=== PATIENT | male | born 1950 | race Caucasian/White ===

== ENCOUNTER 2016-04-28 09:03 | Inpatient (IN) ==
[2016-04-28] MEDS ORDERED: Ondansetron 4 MG/2 ML VIAL IVP PRN (09:56)
[2016-04-28] MEDS ORDERED: Naloxone 0.4 MG/ML INJ IVP PRN (09:56)
[2016-04-28] MEDS ORDERED: 0.9 % Sodium Chloride 1,000 ML IVC SCH (10:00)
[2016-04-28] MEDS ORDERED: MetroNIDAZOLE 500 MG/100 ML 500 MG/100 ML BAG IVPB SCH (10:08)
[2016-04-28] MEDS ORDERED: D10% in Water 500 ML IV PRN (11:55)
[2016-04-28] MEDS ORDERED: Lidocaine -MPF 1% 5 ML AMPUL INFILT ONE (12:04)
[2016-04-28] MEDS: Pantoprazole 40 MG VIAL IVP SCH (12:12)
[2016-04-28] MEDS: 0.9 % Sodium Chloride 1,000 ML IVC SCH (12:13)
[2016-04-28 12:20] LABS: Basophils % 0.1 %; Eosinophils # 0.1 K/mcL (0.0-0.6); Eosinophils % 0.4 %; Hematocrit 34.5 % (37.5-50.1); Hemoglobin 11.5 g/dL (12.9-16.9); Immature Granulocytes % 1.2 % (0-4); Lymphocytes # 1.2 K/mcL (0.6-4.6); Lymphocytes % 7.9 %; Mean Corpuscular HGB Conc 33.3 g/dL (31.6-35.5); Mean Corpuscular Hemoglobin 28.3 pg (28.0-33.3); Mean Platelet Volume 9.1 fL (9.4-12.4); Monocytes # 1.6 K/mcL (0.0-1.3); Monocytes % 10.5 %; Neutrophils # 12.5 K/mcL (1.6-8.9); Platelet Count 282 K/mcL (140-400); Red Blood Count 4.06 M/mcL (4.19-5.50); Red Cell Distribution Width 12.7 % (11.5-14.5); Segmented Neutrophils % 79.9 %
[2016-04-28 12:39] LABS: BUN/Creatinine Ratio 39 (6-26); Blood Urea Nitrogen 38 mg/dL (8-26); Calcium 8.9 mg/dL (8.6-10.8); Carbon Dioxide 22 mEq/L (19-29); Chloride 99 mEq/L (98-109); Glucose 107 mg/dL (70-99); Magnesium 2.3 mg/dL (1.6-2.6); Osmolality,Calculated 282 (280-300); Phosphorous 3.8 mg/dL (2.3-4.7); Potassium 3.4 mEq/L (3.5-4.5); Sodium 131 mEq/L (136-145); Triglycerides 215 mg/dL (< 150); eGFR For African Americans > 60 (> 60); eGFR For Non-African Americans > 60 (> 60)
[2016-04-28] MEDS: *HR* HYDROmorphone (PF) 1 MG/ML SYRINGE IVP PRN ×3 (14:07→22:37)
[2016-04-28] MEDS ORDERED: Clinimix E 5%-15% SOLUTION 2,000 ML with MVI, adult with vitamin K 10 ML IV SCH (17:00)
[2016-04-28] MEDS: MetroNIDAZOLE 500 MG/100 ML 500 MG/100 ML BAG IVPB SCH (22:31)
[2016-04-29] MEDS: *HR* HYDROmorphone (PF) 1 MG/ML SYRINGE IVP PRN ×4 (04:32→22:30)
[2016-04-29] MEDS: MetroNIDAZOLE 500 MG/100 ML 500 MG/100 ML BAG IVPB SCH ×3 (04:34→22:26)
[2016-04-29 06:10] LABS: Magnesium 2.1 mg/dL (1.6-2.6); Phosphorous 3.3 mg/dL (2.3-4.7)
[2016-04-29] MEDS: Pantoprazole 40 MG VIAL IVP SCH (08:54)
[2016-04-29] MEDS: 0.9 % Sodium Chloride 1,000 ML IVC SCH (08:56)
--- NOTE | 2016-04-29 09:30 | General Surgery Progress Note ---
Date of Encounter: 04/29/16 Time of Encounter: 09:28 - Assessment and Plan (1) Intra-abdominal abscess Current Visit: Yes Status: Acute IR consult for drain placement in sub-hepatic abscess Continue NPO and bowel rest Continue IV antibiotics - Cipro and Flagyl Continue TPN with total fluid rate 100ml/hour (MIV + TPN) Supportive care/Pain control Repeat am labs No surgical intervention at this time- continue with conservative treatment (2) S/P right colectomy Current Visit: Yes Status: Acute POD # 16 right colon resection with Dr. Watkins CT shows no evidence of ongoing anastomotic leak Continue NPO and bowel rest Continue TPN therapy for nutrition May remove annemarie today (3) Leukocytosis Current Visit: Yes Status: Acute IV antibiotics- Cipro and Flagyl Repeat labs in the am Qualifiers: Leukocytosis type: unspecified Qualified Code(s): D72.829 - Elevated white blood cell count, unspecified (4) Hypertension Current Visit: Yes Status: Chronic Add Metoprolol IV every 6 hours for mildly elevated BP Continue to monitor and adjust treatment regimen as necessary Qualifiers: Hypertension type: essential hypertension Qualified Code(s): I10 - Essential (primary) hypertension (5) Hyperglycemia Current Visit: Yes Status: Acute Add low sliding scale insulin for mildly elevated blood glucose levels- Every 6 hour coverage Continue to monitor and adjust as necessary (6) DVT prophylaxis Current Visit: Yes Status: Acute Heparin 5,000 units SQ twice daily for DVT prophylaxis Subjective Patient reports: feels better, still having pain (Right sided abdominal pain), voiding w/o difficulty, flatus, shortness of breath (with exertion), fever ( Tmax 100.3) Objective Vital Signs - Last 8 Hours Temp Pulse Resp BP Pulse Ox 04/29/16 07:06 100.3 F H 77 18 147/76 93 L 04/29/16 04:00 100.1 F H 73 17 152/75 92 L Intake and Output 04/28/16 04/29/16 04/29/16 23:59 07:59 15:59 Intake Total 700 / 700 600 / 600 Output Total 395 / 395 290 / 290 Balance 305 / 305 310 / 310 Intake: IV Fluids 700 / 700 600 / 600 0.9 % Sodium Chloride 1, 400 / 400 600 / 600 000 ML @ 100 mls/hr IVC . Q10H [facility], [facility] Rx#:[id number] Cipro 400 MG/200 ML 400 200 / 200 mg In 200 ml @ 200 mls/hr IVPB Q12HR [facility] Rx#: [id number] Flagyl 500 MG/100 ML 500 100 / 100 mg In 100 ml @ 100 mls/hr IVPB Q8H [facility] Rx#: [id number] Oral 0 / 0 Output: Urine 350 / 350 250 / 250 Wound Drainage 45 / 45 40 / 40 Abdomen 45 / 45 40 / 40 Other: Blood Glucose* 118 130 - General physical appearance well developed, well nourished, no distress, moderate pain - Eyes normal ocular movement - ENT dry mucosa, atraumatic, normocephalic - Neck Neck exam: trachea midline - Respiratory normal respiratory effort, clear to auscultation, other (diminished bibasilar bases) - Cardiovascular Cardiovascular exam: Present: RRR - Abdomen Abdomen: Present: bowel sounds present, soft, tender Abdominal Tenderness: RUQ - Incision Incision: Present: clean and dry, intact - Neurologic CN 2-12 grossly intact - Musculoskeletal normal gait, normal posture - Psychiatric oriented to time, oriented to person, oriented to place, speech is normal, memory intact - Labs 04/28/16 12:12 04/28/16 12:12 Diabetes panel 04/28/16 Range/Units 12:12 Sodium 131 L (136-145) mEq/L Potassium 3.4 L (3.5-4.5) mEq/L Chloride 99 (98-109) mEq/L Carbon Dioxide 22 (19-29) mEq/L BUN 38 H (8-26) mg/dL Creatinine 0.98 (0.72-1.25) mg/dL Glucose 107 H (70-99) mg/dL Calcium 8.9 (8.6-10.8) mg/dL Triglycerides 215 H (< 150) mg/dL Calcium panel 04/28/16 04/29/16 Range/Units 12:12 05:45 Calcium 8.9 (8.6-10.8) mg/dL Phosphorus 3.8 3.3 (2.3-4.7) mg/dL Pituitary panel 04/28/16 Range/Units 12:12 Sodium 131 L (136-145) mEq/L Potassium 3.4 L (3.5-4.5) mEq/L Chloride 99 (98-109) mEq/L Carbon Dioxide 22 (19-29) mEq/L BUN 38 H (8-26) mg/dL Creatinine 0.98 (0.72-1.25) mg/dL Glucose 107 H (70-99) mg/dL Calcium 8.9 (8.6-10.8) mg/dL Adrenal panel 04/28/16 Range/Units 12:12 Sodium 131 L (136-145) mEq/L Potassium 3.4 L (3.5-4.5) mEq/L Chloride 99 (98-109) mEq/L Carbon Dioxide 22 (19-29) mEq/L BUN 38 H (8-26) mg/dL Creatinine 0.98 (0.72-1.25) mg/dL Glucose 107 H (70-99) mg/dL Calcium 8.9 (8.6-10.8) mg/dL - VTE Documentation of Mechanical Device: Intermittent pneumatic compression device Consult Discharge Plan - Plan [facility]errals: [facility] [Primary Care Provider[facility] -
[2016-04-29 09:35] LABS: BUN/Creatinine Ratio 33 (6-26); Calcium 8.2 mg/dL (8.6-10.8); Carbon Dioxide 23 mEq/L (19-29); Chloride 101 mEq/L (98-109); Glucose 125 mg/dL (70-99); Osmolality,Calculated 282 (280-300); Potassium 3.3 mEq/L (3.5-4.5); Sodium 133 mEq/L (136-145); eGFR For African Americans > 60 (> 60); eGFR For Non-African Americans > 60 (> 60)
[2016-04-29 09:36] LABS: Blood Urea Nitrogen 24 mg/dL (8-26)
[2016-04-29] MEDS ORDERED: Dextrose Gel 15 GM PO PRN ×2 (09:41)
[2016-04-29] MEDS ORDERED: D5% in Water 1,000 ML IV PRN (09:41)
[2016-04-29] MEDS ORDERED: *HR* Dextrose 50 % in Water (Syg) 50 ML SYRINGE IVP PRN (09:41)
[2016-04-29] MEDS ORDERED: *HR* FentaNYL (PF) 100 MCG/2 ML VIAL IV PRN (09:56)
[2016-04-29] MEDS ORDERED: *HR* Midazolam HCl 2 MG/2 ML VIAL IV PRN (09:56)
--- NOTE | 2016-04-29 10:21 | IR Procedure Note ---
Date of procedure: 04/29/16 Consent Obtained: Verbal consent, Written consent Timeout: Correct patient and procedure verified, Correct site verified, Time out performed, Skin prep completed Local anesthetic: Lidocaine 1% Indications: Subcapsular hepatic abscess Procedure Performed: Drain placement Site/Technique: CT guided placement right subcapsular drain Results/Findings: Large amount of purulent fluid Estimated blood loss (cc): 2 Complications: None; Tolerated procedure well Post Procedure Treatment Plan: Continue inpatient care
[2016-04-29] MEDS ORDERED: D10% in Water 500 ML IV PRN ×2 (10:44→11:24)
[2016-04-29 12:17] LABS: Basophils # 0.1 K/mcL (0.0-0.2); Basophils % 0.3 %; Eosinophils % 0.2 %; Hematocrit 36.8 % (37.5-50.1); Hemoglobin 12.2 g/dL (12.9-16.9); Lymphocytes # 1.5 K/mcL (0.6-4.6); Lymphocytes % 9.3 %; Mean Corpuscular HGB Conc 33.2 g/dL (31.6-35.5); Mean Corpuscular Volume 84.6 fL (83.0-100.0); Mean Platelet Volume 9.2 fL (9.4-12.4); Monocytes % 11.9 %; Neutrophils # 12.5 K/mcL (1.6-8.9); Platelet Count 320 K/mcL (140-400); Red Blood Count 4.35 M/mcL (4.19-5.50); Red Cell Distribution Width 12.6 % (11.5-14.5); Segmented Neutrophils % 76.3 %
[2016-04-29] MEDS ORDERED: Potassium Chloride 40 MEQ, Lidocaine 1% 2 ML in D5% in Water 500 ML IVPB ONE (12:29)
[2016-04-29] MEDS: Insulin LISPRO 300 UNITS/3 ML VIAL SQ SCH ×2 (14:03→16:34)
[2016-04-29] MEDS: *HR* Metoprolol 5 MG/5 ML VIAL IVP SCH ×2 (14:04→16:44)
[2016-04-29] MEDS ORDERED: Acetaminophen IV 1,000 MG/100 ML INFUS..BTL IVPB PRN (15:24)
[2016-04-29] MEDS ORDERED: Clinimix E 5%-20% SOLUTION 2,000 ML with MVI, adult with vitamin K 10 ML IV SCH (17:00)
[2016-04-30] MEDS: *HR* Metoprolol 5 MG/5 ML VIAL IVP SCH ×4 (01:31→17:27)
[2016-04-30] MEDS: Insulin LISPRO 300 UNITS/3 ML VIAL SQ SCH ×5 (01:33→23:58)
[2016-04-30] MEDS: *HR* HYDROmorphone (PF) 1 MG/ML SYRINGE IVP PRN ×6 (01:39→22:43)
[2016-04-30] MEDS: MetroNIDAZOLE 500 MG/100 ML 500 MG/100 ML BAG IVPB SCH ×3 (06:18→20:29)
[2016-04-30] MEDS: Pantoprazole 40 MG VIAL IVP SCH (09:16)
[2016-04-30 12:25] LABS: Hematocrit 33.3 % (37.5-50.1); Immature Platelets 2.2 % (1.1-6.1); Mean Corpuscular Hemoglobin 28.2 pg (28.0-33.3); Mean Platelet Volume 9.5 fL (9.4-12.4); Platelet Count 310 K/mcL (140-400); Red Cell Distribution Width 12.8 % (11.5-14.5)
[2016-04-30 12:29] LABS: Mean Corpuscular Volume 85.4 fL (83.0-100.0)
[2016-04-30 12:32] LABS: Glucose 97 mg/dL (70-99)
[2016-04-30 12:52] LABS: BUN/Creatinine Ratio 33 (6-26); Blood Urea Nitrogen 23 mg/dL (8-26); Calcium 8.7 mg/dL (8.6-10.8); Carbon Dioxide 24 mEq/L (19-29); Chloride 102 mEq/L (98-109); Osmolality,Calculated 282 (280-300); eGFR For African Americans > 60 (> 60); eGFR For Non-African Americans > 60 (> 60)
[2016-04-30 12:55] LABS: Potassium 3.6 mEq/L (3.5-4.5); Sodium 134 mEq/L (136-145)
[2016-04-30 12:56] LABS: Eosinophils # 0.3 K/mcL (0.0-0.6); Lymphocytes # 0.7 K/mcL (0.6-4.6); Monocytes # 1.4 K/mcL (0.0-1.3); Neutrophils # 14.6 K/mcL (1.6-8.9); Platelet Estimate Normal (Normal); Reactive Lymphocytes Present (Not Present)
[2016-04-30] MEDS: 0.9 % Sodium Chloride 1,000 ML IVC SCH ×3 (13:04→20:37)
--- NOTE | 2016-04-30 14:17 | General Surgery Progress Note ---
<Deepa Tran - Last Filed: 04/30/16 14:49> Date of Encounter: 04/30/16 Time of Encounter: 14:15 - Assessment and Plan (1) Intra-abdominal abscess Current Visit: Yes Status: Acute ANDRÉS drains Continue NPO and bowel rest Continue IV antibiotics - Cipro and Flagyl Continue TPN with total fluid rate 100ml/hour (MIV + TPN) Supportive care/Pain control Repeat am labs No surgical intervention at this time- continue with conservative treatment (2) S/P right colectomy Current Visit: Yes Status: Acute POD # 17 right colon resection with Dr. Watkins CT shows no evidence of ongoing anastomotic leak Continue NPO and bowel rest Continue TPN therapy for nutrition (3) Leukocytosis Current Visit: Yes Status: Acute IV antibiotics- Cipro and Flagyl Repeat labs in the am Qualifiers: Leukocytosis type: unspecified Qualified Code(s): D72.829 - Elevated white blood cell count, unspecified (4) Hypertension Current Visit: Yes Status: Chronic lopressor 5mg IV q6hr continue to monitor and adjust regimen as necessary Qualifiers: Hypertension type: essential hypertension Qualified Code(s): I10 - Essential (primary) hypertension (5) Hyperglycemia Current Visit: Yes Status: Acute low dose sliding scale q6hr continue to monitor and adjust as necessary (6) DVT prophylaxis Current Visit: Yes Status: Acute heparin SQ Subjective Patient reports: feels better, voiding w/o difficulty, flatus, no bowel movement , fever (T max 101.1) Objective Vital Signs - Last 8 Hours Temp Pulse Resp BP Pulse Ox 04/30/16 13:15 63 135/77 04/30/16 11:07 97.7 F 72 18 153/80 96 04/30/16 09:30 94 L 04/30/16 06:40 98.0 F 72 18 119/72 Intake and Output 04/29/16 04/30/16 04/30/16 23:59 07:59 15:59 Intake Total 1200 / 1200 450 / 450 Output Total 340 / 340 360 / 360 520 / 520 Balance 860 / 860 -360 / -360 -70 / -70 Intake: IV Fluids 1200 / 1200 450 / 450 0.9 % Sodium Chloride 1, 700 / 700 150 / 150 000 ML @ 100 mls/hr IVC . Q10H [facility] Rx#:[id number] Ofirmev 1,000 mg In 100 100 / 100 ml @ 400 mls/hr IVPB Q6H PRN Rx#:[id number] Cipro 400 MG/200 ML 400 200 / 200 200 / 200 mg In 200 ml @ 200 mls/hr IVPB Q12HR [facility] Rx#: [id number] Flagyl 500 MG/100 ML 500 200 / 200 100 / 100 mg In 100 ml @ 100 mls/hr IVPB Q8H [facility] Rx#: [id number] Oral 0 / 0 Output: Urine 300 / 300 320 / 320 500 / 500 Wound Drainage 40 / 40 40 / 40 20 / 20 ANDRÉS drain RLQ ANDRÉS drain RUQ Other: # Voids 1 Blood Glucose* 148 161 115 - General physical appearance well developed, well nourished, no distress - Eyes normal ocular movement - ENT normal mucosa, atraumatic, normocephalic - Neck Neck exam: trachea midline - Respiratory normal respiratory effort - Cardiovascular Cardiovascular exam: Present: RRR - Abdomen Abdomen: Present: bowel sounds present, soft, non tender, wound (ANDRÉS drain RUQ ( 95cc serosanguinous drainage total), ANDRÉS drain RLQ (35cc serosanguinous drainage total)) - Integumentary no rash - Neurologic CN 2-12 grossly intact - Psychiatric oriented to time, oriented to person, oriented to place, speech is normal, memory intact - Labs 04/30/16 11:24 04/30/16 11:24 Diabetes panel 04/30/16 Range/Units 11:24 Sodium 134 L (136-145) mEq/L Potassium 3.6 (3.5-4.5) mEq/L Chloride 102 (98-109) mEq/L Carbon Dioxide 24 (19-29) mEq/L BUN 23 (8-26) mg/dL Creatinine 0.69 L (0.72-1.25) mg/dL Glucose 97 (70-99) mg/dL Calcium 8.7 (8.6-10.8) mg/dL Calcium panel 04/30/16 Range/Units 11:24 Calcium 8.7 (8.6-10.8) mg/dL Pituitary panel 04/30/16 Range/Units 11:24 Sodium 134 L (136-145) mEq/L Potassium 3.6 (3.5-4.5) mEq/L Chloride 102 (98-109) mEq/L Carbon Dioxide 24 (19-29) mEq/L BUN 23 (8-26) mg/dL Creatinine 0.69 L (0.72-1.25) mg/dL Glucose 97 (70-99) mg/dL Calcium 8.7 (8.6-10.8) mg/dL Adrenal panel 04/30/16 Range/Units 11:24 Sodium 134 L (136-145) mEq/L Potassium 3.6 (3.5-4.5) mEq/L Chloride 102 (98-109) mEq/L Carbon Dioxide 24 (19-29) mEq/L BUN 23 (8-26) mg/dL Creatinine 0.69 L (0.72-1.25) mg/dL Glucose 97 (70-99) mg/dL Calcium 8.7 (8.6-10.8) mg/dL - VTE Documentation of Mechanical Device: Intermittent pneumatic compression device Consult Discharge Plan - Plan [facility]errals: [facility] [Primary Care Provider] - <Davide Brandon - Last Filed: 04/30/16 15:04> Objective Vital Signs - Last 8 Hours Temp Pulse Resp BP Pulse Ox 04/30/16 13:15 63 135/77 04/30/16 11:07 97.7 F 72 18 153/80 96 04/30/16 09:30 94 L Intake and Output 04/29/16 04/30/16 04/30/16 23:59 07:59 15:59 Intake Total 1200 / 1200 450 / 450 Output Total 340 / 340 360 / 360 520 / 520 Balance 860 / 860 -360 / -360 -70 / -70 Intake: IV Fluids 1200 / 1200 450 / 450 0.9 % Sodium Chloride 1, 700 / 700 150 / 150 000 ML @ 100 mls/hr IVC . Q10H [facility] Rx#:[id number] Ofirmev 1,000 mg In 100 100 / 100 ml @ 400 mls/hr IVPB Q6H PRN Rx#:[id number] Cipro 400 MG/200 ML 400 200 / 200 200 / 200 mg In 200 ml @ 200 mls/hr IVPB Q12HR [facility] Rx#: [id number] Flagyl 500 MG/100 ML 500 200 / 200 100 / 100 mg In 100 ml @ 100 mls/hr IVPB Q8H [facility] Rx#: [id number] Oral 0 / 0 Output: Urine 300 / 300 320 / 320 500 / 500 Wound Drainage 40 ANDRÉS drain RLQ ANDRÉS drain RUQ Other: # Voids 1 Blood Glucose* 148 161 115 - Labs 04/30/16 11:24 04/30/16 11:24 Diabetes panel 04/30/16 Range/Units 11:24 Sodium 134 L (136-145) mEq/L Potassium 3.6 (3.5-4.5) mEq/L Chloride 102 (98-109) mEq/L Carbon Dioxide 24 (19-29) mEq/L BUN 23 (8-26) mg/dL Creatinine 0.69 L (0.72-1.25) mg/dL Glucose 97 (70-99) mg/dL Calcium 8.7 (8.6-10.8) mg/dL Calcium panel 04/30/16 Range/Units 11:24 Calcium 8.7 (8.6-10.8) mg/dL Pituitary panel 04/30/16 Range/Units 11:24 Sodium 134 L (136-145) mEq/L Potassium 3.6 (3.5-4.5) mEq/L Chloride 102 (98-109) mEq/L Carbon Dioxide 24 (19-29) mEq/L BUN 23 (8-26) mg/dL Creatinine 0.69 L (0.72-1.25) mg/dL Glucose 97 (70-99) mg/dL Calcium 8.7 (8.6-10.8) mg/dL Adrenal panel 04/30/16 Range/Units 11:24 Sodium 134 L (136-145) mEq/L Potassium 3.6 (3.5-4.5) mEq/L Chloride 102 (98-109) mEq/L Carbon Dioxide 24 (19-29) mEq/L BUN 23 (8-26) mg/dL Creatinine 0.69 L (0.72-1.25) mg/dL Glucose 97 (70-99) mg/dL Calcium 8.7 (8.6-10.8) mg/dL - Attending Attestation I examined this patient and my medical decision-making was reviewed with the F[employer] PIPE COVERING SUPERVISOR/PA/Advanced Practice Nurse/Resident Physician. I agree with the documented findings, disposition and treatment plan as described except to the extent set forth below. I reviewed the above evaluation and physical examination. Patient is somewhat sore and denies nausea or vomiting. Positive bowel sounds. We will continue with nothing by mouth for bowel rest and continue to monitor the drain output from the 2 abdominal drains. Continue with IV antibiotics.
[2016-04-30 15:08] LABS: Magnesium 1.8 mg/dL (1.6-2.6); Phosphorous 3.3 mg/dL (2.3-4.7)
[2016-04-30] MEDS ORDERED: Clinimix E 5%-20% SOLUTION 2,000 ML with MVI, adult with vitamin K 10 ML IV SCH (17:00)
[2016-05-01] MEDS: *HR* Metoprolol 5 MG/5 ML VIAL IVP SCH ×5 (00:02→23:39)
[2016-05-01] MEDS: *HR* HYDROmorphone (PF) 1 MG/ML SYRINGE IVP PRN ×6 (02:16→22:11)
[2016-05-01 04:01] LABS: Basophils % 0.3 %; Eosinophils # 0.2 K/mcL (0.0-0.6); Eosinophils % 1.1 %; Hematocrit 32.8 % (37.5-50.1); Hemoglobin 11.1 g/dL (12.9-16.9); Immature Granulocytes % 1.7 % (0-4); Lymphocytes % 12.4 %; Mean Corpuscular HGB Conc 33.8 g/dL (31.6-35.5); Mean Corpuscular Hemoglobin 28.8 pg (28.0-33.3); Mean Platelet Volume 9.1 fL (9.4-12.4); Monocytes # 1.3 K/mcL (0.0-1.3); Monocytes % 8.4 %; Platelet Count 298 K/mcL (140-400); Red Blood Count 3.86 M/mcL (4.19-5.50); Red Cell Distribution Width 12.9 % (11.5-14.5); Segmented Neutrophils % 76.1 %
[2016-05-01 04:07] LABS: Basophils # 0.1 K/mcL (0.0-0.2)
[2016-05-01 04:10] LABS: BUN/Creatinine Ratio 34 (6-26); Blood Urea Nitrogen 23 mg/dL (8-26); Calcium 8.6 mg/dL (8.6-10.8); Carbon Dioxide 20 mEq/L (19-29); Chloride 105 mEq/L (98-109); Glucose 124 mg/dL (70-99); Osmolality,Calculated 283 (280-300); Potassium 3.7 mEq/L (3.5-4.5); Sodium 134 mEq/L (136-145); eGFR For African Americans > 60 (> 60); eGFR For Non-African Americans > 60 (> 60)
[2016-05-01 04:28] LABS: Platelet Estimate Normal (Normal)
[2016-05-01] MEDS: Insulin LISPRO 300 UNITS/3 ML VIAL SQ SCH ×4 (05:42→23:38)
[2016-05-01] MEDS: MetroNIDAZOLE 500 MG/100 ML 500 MG/100 ML BAG IVPB SCH ×3 (05:47→22:10)
--- NOTE | 2016-05-01 08:28 | General Surgery Progress Note ---
<Deepa Tran - Last Filed: 05/01/16 11:54> Date of Encounter: 05/01/16 Time of Encounter: 08:25 - Assessment and Plan (1) Intra-abdominal abscess Current Visit: Yes Status: Acute ANDRÉS drains Continue NPO and bowel rest Continue IV antibiotics - Cipro and Flagyl Continue TPN with total fluid rate 100ml/hour (MIV + TPN) Supportive care/Pain control Repeat AM labs No surgical intervention at this time- continue with conservative treatment (2) S/P right colectomy Current Visit: Yes Status: Acute POD # 18 right colon resection with Dr. Watkins CT shows no evidence of ongoing anastomotic leak Continue NPO and bowel rest Continue TPN therapy for nutrition (3) Leukocytosis Current Visit: Yes Status: Acute improved 17>15.7 IV antibiotics- Cipro and Flagyl repeat AM labs Qualifiers: Leukocytosis type: unspecified Qualified Code(s): D72.829 - Elevated white blood cell count, unspecified (4) Hypertension Current Visit: Yes Status: Chronic lopressor 5mg IV q6hr continue to monitor and adjust as necessary Qualifiers: Hypertension type: essential hypertension Qualified Code(s): I10 - Essential (primary) hypertension (5) Hyperglycemia Current Visit: Yes Status: Acute low dose sliding scale q6hr continue to monitor and adjust as necessary (6) DVT prophylaxis Current Visit: Yes Status: Acute SCDs to bilateral LE Subjective Patient reports: no new complaints, feels better, voiding w/o difficulty, afebrile, other (patient requesting to walk halls and shower) Objective Vital Signs - Last 8 Hours Temp Pulse Resp BP Pulse Ox 05/01/16 06:43 98.3 F 76 15 138/73 99 05/01/16 04:10 72 17 134/67 100 Intake and Output 04/30/16 05/01/16 05/01/16 23:59 07:59 15:59 Intake Total 400 / 400 100 / 100 Output Total 250 / 250 100 / 100 Balance 150 / 150 0 / 0 Intake: IV Fluids 400 / 400 Cipro 400 MG/200 ML 400 200 / 200 mg In 200 ml @ 200 mls/hr IVPB Q12HR [facility] Rx#: [id number] Flagyl 500 MG/100 ML 500 200 / 200 mg In 100 ml @ 100 mls/hr IVPB Q8H [facility] Rx#: [id number] Oral 100 / 100 Output: Urine 250 / 250 100 / 100 Wound Drainage 0 / 0 ANDRÉS drain RLQ 0 / 0 ANDRÉS drain RUQ 0 / 0 Other: Blood Glucose* 128 148 - General physical appearance well developed, well nourished, no distress - Eyes PERRL, normal ocular movement - ENT normal mucosa, atraumatic, normocephalic - Neck Neck exam: trachea midline - Respiratory normal respiratory effort, clear to auscultation - Cardiovascular Cardiovascular exam: Present: RRR - Abdomen Abdomen: Present: bowel sounds present, soft, non tender, wound (ANDRÉS drain RUQ ( 35cc drainage previous 24 hrs), ANDRÉS drain RLQ (25cc drainage previous 24 hrs)) - Integumentary no rash - Neurologic CN 2-12 grossly intact - Musculoskeletal normal posture - Psychiatric oriented to time, oriented to person, oriented to place, speech is normal, memory intact - Labs 05/01/16 03:44 05/01/16 03:44 Diabetes panel 04/30/16 05/01/16 Range/Units 11:24 03:44 Sodium 134 L 134 L (136-145) mEq/L Potassium 3.6 3.7 (3.5-4.5) mEq/L Chloride 102 105 (98-109) mEq/L Carbon Dioxide 24 20 (19-29) mEq/L BUN 23 23 (8-26) mg/dL Creatinine 0.69 L 0.67 L (0.72-1.25) mg/dL Glucose 97 124 H (70-99) mg/dL Calcium 8.7 8.6 (8.6-10.8) mg/dL Calcium panel 04/30/16 04/30/16 05/01/16 Range/Units 09:24 11:24 03:44 Calcium 8.7 8.6 (8.6-10.8) mg/dL Phosphorus 3.3 (2.3-4.7) mg/dL Pituitary panel 04/30/16 05/01/16 Range/Units 11:24 03:44 Sodium 134 L 134 L (136-145) mEq/L Potassium 3.6 3.7 (3.5-4.5) mEq/L Chloride 102 105 (98-109) mEq/L Carbon Dioxide 24 20 (19-29) mEq/L BUN 23 23 (8-26) mg/dL Creatinine 0.69 L 0.67 L (0.72-1.25) mg/dL Glucose 97 124 H (70-99) mg/dL Calcium 8.7 8.6 (8.6-10.8) mg/dL Adrenal panel 04/30/16 05/01/16 Range/Units 11:24 03:44 Sodium 134 L 134 L (136-145) mEq/L Potassium 3.6 3.7 (3.5-4.5) mEq/L Chloride 102 105 (98-109) mEq/L Carbon Dioxide 24 20 (19-29) mEq/L BUN 23 23 (8-26) mg/dL Creatinine 0.69 L 0.67 L (0.72-1.25) mg/dL Glucose 97 124 H (70-99) mg/dL Calcium 8.7 8.6 (8.6-10.8) mg/dL - VTE Documentation of Mechanical Device: Intermittent pneumatic compression device Consult Discharge Plan - Plan Referrals: [facility] [Primary Care Provider] - <Davide Brandon - Last Filed: 05/01/16 23:59> Objective Vital Signs - Last 8 Hours Temp Pulse Resp BP Pulse Ox 05/01/16 23:21 97.8 F 78 16 139/60 95 05/01/16 20:17 97.7 F 64 96 Intake and Output 05/01/16 05/01/16 05/01/16 07:59 15:59 23:59 Intake Total 400 / 400 0 / 0 300 / 300 Output Total 100 / 100 450 / 450 0 / 0 Balance 300 / 300 -450 / -450 300 / 300 Intake: IV Fluids 300 / 300 300 / 300 Cipro 400 MG/200 ML 400 200 / 200 200 / 200 mg In 200 ml @ 200 mls/hr IVPB Q12HR [facility] Rx#: [id number] Flagyl 500 MG/100 ML 500 100 / 100 100 / 100 mg In 100 ml @ 100 mls/hr IVPB Q8H [facility] Rx#: [id number] Oral 100 / 100 0 / 0 Output: Urine 100 / 100 450 / 450 Wound Drainage 0 / 0 0 / 0 ANDRÉS drain RLQ 0 / 0 0 / 0 ANDRÉS drain RUQ 0 / 0 0 / 0 Other: Meal NPO Patient is NPO at this time Blood Glucose* 148 134 108 - Labs 05/01/16 03:44 05/01/16 03:44 Diabetes panel 05/01/16 Range/Units 03:44 Sodium 134 L (136-145) mEq/L Potassium 3.7 (3.5-4.5) mEq/L Chloride 105 (98-109) mEq/L Carbon Dioxide 20 (19-29) mEq/L BUN 23 (8-26) mg/dL Creatinine 0.67 L (0.72-1.25) mg/dL Glucose 124 H (70-99) mg/dL Calcium 8.6 (8.6-10.8) mg/dL Calcium panel 05/01/16 Range/Units 03:44 Calcium 8.6 (8.6-10.8) mg/dL Pituitary panel 05/01/16 Range/Units 03:44 Sodium 134 L (136-145) mEq/L Potassium 3.7 (3.5-4.5) mEq/L Chloride 105 (98-109) mEq/L Carbon Dioxide 20 (19-29) mEq/L BUN 23 (8-26) mg/dL Creatinine 0.67 L (0.72-1.25) mg/dL Glucose 124 H (70-99) mg/dL Calcium 8.6 (8.6-10.8) mg/dL Adrenal panel 05/01/16 Range/Units 03:44 Sodium 134 L (136-145) mEq/L Potassium 3.7 (3.5-4.5) mEq/L Chloride 105 (98-109) mEq/L Carbon Dioxide 20 (19-29) mEq/L BUN 23 (8-26) mg/dL Creatinine 0.67 L (0.72-1.25) mg/dL Glucose 124 H (70-99) mg/dL Calcium 8.6 (8.6-10.8) mg/dL - Attending Attestation I examined this patient and my medical decision-making was reviewed with the HIDE BUYER/PA/Advanced Practice Nurse/Resident Physician. I agree with the documented findings, disposition and treatment plan as described except to the extent set forth below. I reviewed the above assessment and plan and agree with the above plan. Continue IV antibiotics and nothing by mouth status. Continue with TPN. Dr. Watkins to return 05/02/2016.
[2016-05-01] MEDS: Pantoprazole 40 MG VIAL IVP SCH (09:49)
[2016-05-01] MEDS ORDERED: Clinimix E 5%-20% SOLUTION 2,000 ML with MVI, adult with vitamin K 10 ML IV SCH (17:00)
[2016-05-01] MEDS ORDERED: traZODone 50 MG TABLET PO PRN (19:34)
[2016-05-01] MEDS: 0.9 % Sodium Chloride 1,000 ML IVC SCH ×2 (19:36→19:37)
[2016-05-02] MEDS: *HR* HYDROmorphone (PF) 1 MG/ML SYRINGE IVP PRN ×3 (03:06→11:20)
[2016-05-02] MEDS: MetroNIDAZOLE 500 MG/100 ML 500 MG/100 ML BAG IVPB SCH (05:29)
[2016-05-02] MEDS: *HR* Metoprolol 5 MG/5 ML VIAL IVP SCH ×2 (05:30→12:08)
[2016-05-02] MEDS: Insulin LISPRO 300 UNITS/3 ML VIAL SQ SCH ×3 (05:48→17:49)
[2016-05-02] MEDS: Pantoprazole 40 MG VIAL IVP SCH (08:37)
[2016-05-02 11:33] LABS: Glucose 122 mg/dL (70-99)
[2016-05-02 12:15] LABS: BUN/Creatinine Ratio 34 (6-26); Blood Urea Nitrogen 23 mg/dL (8-26); Calcium 8.7 mg/dL (8.6-10.8); Carbon Dioxide 22 mEq/L (19-29); Chloride 104 mEq/L (98-109); Magnesium 1.6 mg/dL (1.6-2.6); Osmolality,Calculated 283 (280-300); Phosphorous 3.9 mg/dL (2.3-4.7); Potassium 4.2 mEq/L (3.5-4.5); Sodium 134 mEq/L (136-145); eGFR For African Americans > 60 (> 60); eGFR For Non-African Americans > 60 (> 60)
[2016-05-02 12:15] LABS: Basophils % 0.3 %; Eosinophils # 0.2 K/mcL (0.0-0.6); Eosinophils % 1.3 %; Hematocrit 32.9 % (37.5-50.1); Immature Granulocytes % 1.1 % (0-4); Lymphocytes # 1.8 K/mcL (0.6-4.6); Lymphocytes % 11.7 %; Mean Corpuscular HGB Conc 33.4 g/dL (31.6-35.5); Mean Corpuscular Hemoglobin 28.7 pg (28.0-33.3); Mean Corpuscular Volume 85.9 fL (83.0-100.0); Mean Platelet Volume 8.8 fL (9.4-12.4); Monocytes # 1.3 K/mcL (0.0-1.3); Monocytes % 8.2 %; Platelet Count 313 K/mcL (140-400); Red Blood Count 3.83 M/mcL (4.19-5.50); Red Cell Distribution Width 12.9 % (11.5-14.5); Segmented Neutrophils % 77.4 %
[2016-05-02 12:16] LABS: Basophils # 0.1 K/mcL (0.0-0.2); Neutrophils # 12.2 K/mcL (1.6-8.9)
[2016-05-02 12:34] LABS: Platelet Estimate Normal (Normal); Reactive Lymphocytes Present (Not Present)
[2016-05-02] MEDS ORDERED: *HR* HYDROmorphone (PF) 1 MG/ML SYRINGE IVP PRN (13:12)
--- NOTE | 2016-05-02 13:17 | General Surgery Progress Note ---
Date of Encounter: 05/02/16 Time of Encounter: 13:15 - Assessment and Plan (1) Intra-abdominal abscess Current Visit: Yes Status: Acute Continue Pigtail drainage Advance to full liquid diet Transition to oral antibiotics - Cipro and Flagyl Decrease TPN to 50ml/hour and stop at 1700 Saline lock IV fluids Supportive care/Pain control Continue with conservative treatment (2) S/P right colectomy Current Visit: Yes Status: Acute POD # 19 right colon resection with Dr. Watkins Advance to full liquid diet Continue pigtail drainage (3) Leukocytosis Current Visit: Yes Status: Acute Transition to oral antibiotics- Cipro and Flagyl Qualifiers: Leukocytosis type: unspecified Qualified Code(s): D72.829 - Elevated white blood cell count, unspecified (4) Hypertension Current Visit: Yes Status: Chronic Resume home medication regimen Continue to monitor and adjust treatment regimen as necessary Qualifiers: Hypertension type: essential hypertension Qualified Code(s): I10 - Essential (primary) hypertension (5) Hyperglycemia Current Visit: Yes Status: Acute Controlled Continue low sliding scale insulin for mildly elevated blood glucose levels- Every ACHS Continue to monitor and adjust as necessary (6) DVT prophylaxis Current Visit: Yes Status: Acute Heparin 5,000 units SQ twice daily for DVT prophylaxis Subjective Patient reports: feels better, still having pain, pain is less, voiding w/o difficulty, flatus, afebrile Objective Vital Signs - Last 8 Hours Temp Pulse Resp BP Pulse Ox 05/02/16 12:43 97.5 F L 66 14 119/68 97 05/02/16 11:14 97.9 F 72 18 156/73 95 05/02/16 06:58 98.8 F 65 18 135/62 95 05/02/16 05:22 134/66 Intake and Output 05/01/16 05/02/16 05/02/16 23:59 07:59 15:59 Intake Total 400 / 400 300 / 300 Output Total 0 / 0 30 / 30 Balance 400 / 400 270 / 270 Intake: IV Fluids 400 / 400 300 / 300 Cipro 400 MG/200 ML 400 200 / 200 200 / 200 mg In 200 ml @ 200 mls/hr IVPB Q12HR [facility] Rx#: [id number] Flagyl 500 MG/100 ML 500 200 / 200 100 / 100 mg In 100 ml @ 100 mls/hr IVPB Q8H [facility] Rx#: [id number] Output: Wound Drainage 0 / 0 30 30 ANDRÉS drain RLQ 0 / 0 ANDRÉS drain RUQ 0 / 0 Other: Meal Patient is NPO at this time Blood Glucose* 108 129 121 - General physical appearance well developed, well nourished, no distress - Eyes normal ocular movement - ENT normal mucosa, atraumatic, normocephalic - Neck Neck exam: trachea midline - Respiratory normal respiratory effort, clear to auscultation - Cardiovascular Cardiovascular exam: Present: RRR - Abdomen Abdomen: Present: bowel sounds present, soft, tender (mildly tender), wound ( Pigtail drain X 2 with serous drainage noted) - Incision Incision: Present: clean and dry, intact - Integumentary no rash, no growths - Neurologic CN 2-12 grossly intact - Musculoskeletal normal gait, normal posture - Psychiatric oriented to time, oriented to person, oriented to place, speech is normal, memory intact - Labs 05/02/16 12:05 05/02/16 11:05 Diabetes panel 05/02/16 Range/Units 11:05 Sodium 134 L (136-145) mEq/L Potassium 4.2 (3.5-4.5) mEq/L Chloride 104 (98-109) mEq/L Carbon Dioxide 22 (19-29) mEq/L BUN 23 (8-26) mg/dL Creatinine 0.67 L (0.72-1.25) mg/dL Glucose 122 H (70-99) mg/dL Calcium 8.7 (8.6-10.8) mg/dL Calcium panel 05/02/16 Range/Units 11:05 Calcium 8.7 (8.6-10.8) mg/dL Phosphorus 3.9 (2.3-4.7) mg/dL Pituitary panel 05/02/16 Range/Units 11:05 Sodium 134 L (136-145) mEq/L Potassium 4.2 (3.5-4.5) mEq/L Chloride 104 (98-109) mEq/L Carbon Dioxide 22 (19-29) mEq/L BUN 23 (8-26) mg/dL Creatinine 0.67 L (0.72-1.25) mg/dL Glucose 122 H (70-99) mg/dL Calcium 8.7 (8.6-10.8) mg/dL Adrenal panel 05/02/16 Range/Units 11:05 Sodium 134 L (136-145) mEq/L Potassium 4.2 (3.5-4.5) mEq/L Chloride 104 (98-109) mEq/L Carbon Dioxide 22 (19-29) mEq/L BUN 23 (8-26) mg/dL Creatinine 0.67 L (0.72-1.25) mg/dL Glucose 122 H (70-99) mg/dL Calcium 8.7 (8.6-10.8) mg/dL - VTE Documentation of Mechanical Device: Intermittent pneumatic compression device Consult Discharge Plan - Plan Referrals: [facility] [Primary Care Provider] - - Attending Attestation I examined this patient and my medical decision-making was reviewed with the OVERNIGHT BABYSITTER/PA/Advanced Practice Nurse/Resident Physician. I agree with the documented findings, disposition and treatment plan as described except to the extent set forth below.
[2016-05-02] MEDS: Losartan/HCTZ 50-12.5 TABLET PO SCH (13:58)
[2016-05-02] MEDS: metroNIDAZOLE 500 MG TABLET PO SCH ×2 (15:23→20:53)
[2016-05-02] MEDS ORDERED: Clinimix E 5%-20% SOLUTION 2,000 ML with MVI, adult with vitamin K 10 ML IV SCH (17:00)
[2016-05-02] MEDS ORDERED: Insulin LISPRO 300 UNITS/3 ML VIAL SQ SCH ×2 (17:00→21:00)
[2016-05-02] MEDS ORDERED: traZODone 50 MG TABLET PO SCH (21:00)
[2016-05-02] MEDS: traMADol 50 MG TABLET PO PRN (22:21)
[2016-05-03] MEDS: traMADol 50 MG TABLET PO PRN (05:25)
[2016-05-03 07:50] VITALS: BP 157/77
[2016-05-03] MEDS: metroNIDAZOLE 500 MG TABLET PO SCH (09:36)
[2016-05-03] MEDS: Losartan/HCTZ 50-12.5 TABLET PO SCH (09:36)
[2016-05-03] MEDS: Insulin LISPRO 300 UNITS/3 ML VIAL SQ SCH (09:36)
--- NOTE | 2016-05-03 10:05 | Discharge Summary ---
Date of Encounter: 05/03/16 Time of Encounter: 10:00 - Discharge Diagnosis (1) Intra-abdominal abscess Priority: Primary Status: Acute (2) S/P right colectomy Priority: Primary Status: Acute (3) Leukocytosis Priority: Secondary Status: Acute Qualifiers: Leukocytosis type: unspecified Qualified Code(s): D72.829 - Elevated white blood cell count, unspecified (4) Hypertension Priority: Secondary Status: Chronic Qualifiers: Hypertension type: essential hypertension Qualified Code(s): I10 - Essential (primary) hypertension (5) Hyperglycemia Priority: Secondary Status: Acute (6) DVT prophylaxis Priority: Secondary Status: Acute - Discharge Medications Prescriptions: Ciprofloxacin [Cipro] 500 mg PO BID #14 tablet MetroNIDAZOLE [Flagyl] 500 mg PO TID #21 tablet Home Medications: Baclofen 20 mg PO TID 03/30/16 [History] Ergocalciferol (VITAMIN D2) [Vitamin D] 400 unit PO HS 03/30/16 [History] Ibuprofen [Motrin] 800 mg PO Q8HR PRN 03/30/16 [History] Sertraline [Zoloft] 100 mg PO DAILY 03/30/16 [History] TraZODone 50 mg PO HS 03/30/16 [History] Losartan/HCTZ [Hyzaar 50-12.5 Tablet] 1 each PO DAILY 04/13/16 [History] Docusate [Colace] 100 mg PO BID #30 capsule 04/14/16 [Rx] Tramadol HCl 50 mg PO Q6H PRN 04/28/16 [History] Ciprofloxacin [Cipro] 500 mg PO BID #14 tablet 05/03/16 [Rx] MetroNIDAZOLE [Flagyl] 500 mg PO TID #21 tablet 05/03/16 [Rx] Allergies/Adverse Reactions: Allergies No Known Allergies Allergy (Verified 04/28/16 09:51) General Surgery Exam Initial Vital Signs Temp Pulse Resp BP Pulse Ox 98.8 F 66 16 106/57 97 04/28/16 10:02 04/28/16 10:02 04/28/16 10:02 04/28/16 10:02 04/28/16 10:02 - General physical appearance well developed, well nourished, no distress, no pain - Eyes normal ocular movement - ENT normal mucosa, atraumatic, normocephalic - Neck trachea midline - Respiratory normal respiratory effort, clear to auscultation - Cardiovascular Cardiovascular exam: Present: RRR, 15, 16 - Abdomen Abdomen general surgery: Present: bowel sounds present, soft, non tender, wound (RUQ drain with serous drainage noted; RLQ drain with cloudy, yellow drainage noted) - Incision Incision: Present: clean and dry, intact - Integumentary Integumentary general surgery: Present: warm and dry - Neurologic Present: CN 2-12 grossly intact, normal coordination, normal sensation - Musculoskeletal Present: normal gait, normal posture - Psychiatric Psychiatric general surgery: Present: appropriate, oriented to person, oriented to place, oriented to time, speech is normal, memory intact Date of admission: 04/28/16 09:56 Primary care physician: PCP OXANA Consults: 04/28/16 11:58 Consult to Invasive Line Access Team [CONS] Routine Reason for Consult: PICC line placement Line Type: PICC PICC line indications: Parental nutrition Time Notified: 11:59 Call Completed: Yes Consult to Nutrition [CONS] Routine Comment: total fluid rate 100ml/hr (MIV + TPN) Consulting Provider: NUTRITION Reason for Dietary Consult: TPN Start and Manage 04/28/16 12:04 Consult to Invasive Line Access Team [CONS] Routine Reason for Consult: Picc Line Insertion Line Type: PICC 04/29/16 08:49 Consult to Interventional Radiology [CONS] Routine Consulting Provider: Radiology Interventional Cols Reason for Consult: Drainage of subhepatic abscess Time Notified: 08:15 Call Completed: Yes Discharging clinician: [facility]) Anticipated date of discharge: 05/03/16 - Patient Status Disposition: Home, Self-Care Condition: Good Functional capacity at discharge: independent ambulation Overall status at discharge: patient is progressing back to baseline - Discharge Instructions Follow Up With: OXANA,PCP [Primary Care Provider] - Avery Watkins DO [Partnered Physician] - 05/10/16 2:50 pm (surgery follow-up) Additional Instructions: #1 may shower, no tub bath for 2 weeks #2 wash incisions with soap and water and pat dry daily #3 no lifting, pushing, pulling more than 15 pounds for the next 2 weeks #4 no driving until off narcotics for 24 hours and able to safely react in the car #5 may climb stairs #6 drain care- wash around drain with soap and water and pat dry, apply split 4X4 dressing and tape to secure daily. Empty drain twice daily and as needed and record outputs. Bring records to follow-up appointment with Dr. Watkins on - Diet and Activity Activity: increase activity as tolerated Diet: advance to your usual diet - Hospital Course Hospital course: Mr. Pennington is a 65 year old male s/p right colectomy with Dr. Watkins. He was direct admitted to the hospital due to concerns for an anastomotic leak. He was placed on bowel rest, IV antibiotics and TPN therapy for nutrition. He had a repeat CT scan complete with oral contrast which showed no evidence of an ongoing anastomotic leak. He did have a subhepatic fluid collection and was sent to IR for drain placement. The patients symptoms have significantly improved with IR drain placement and conservative therapies. He was transitioned to oral antibiotics yesterday and has tolerated well. He is tolerating a full liquid diet without nausea/vomiting. He is passing flatus and having bowel movements. His vital signs are stable and he is afebrile. His RUQ drain was discontinued today. We will begin discharge planning and plan for outpatient f/u in 1 week. We will continue the right lower drain at this time and will re-evaluate for removal in 1 week. - Time Spent with Patient Total time spent providing and/or coordinating discharge services: Less than 30 minutes Labs on day of discharge: Labs from last 24 hours 05/03/16 05/02/16 05/02/16 07:47 21:22 16:18 WBC RBC Hgb Hct MCV MCH MCHC RDW Plt Count MPV Immature Gran % Seg Neutrophils % Lymphocytes % Monocytes % Eosinophils % Basophils % Neutrophils # Lymphocytes # Monocytes # Eosinophils # Basophils # Reactive Lymphocytes Platelet Estimate Sodium Potassium Chloride Carbon Dioxide BUN Creatinine Est GFR ( Amer) Est GFR (Non-Af Amer) BUN/Creatinine Ratio Glucose POC Glucose 102 H 110 H 112 H Calculated Osmolality Calcium Phosphorus Magnesium 05/02/16 05/02/16 05/02/16 12:05 11:17 11:05 WBC 15.7 H RBC 3.83 L Hgb 11.0 L Hct 32.9 L MCV 85.9 MCH 28.7 MCHC 33.4 RDW 12.9 Plt Count 313 MPV 8.8 L Immature Gran % 1.1 Seg Neutrophils % 77.4 Lymphocytes % 11.7 Monocytes % 8.2 Eosinophils % 1.3 Basophils % 0.3 Neutrophils # 12.2 H Lymphocytes # 1.8 Monocytes # 1.3 Eosinophils # 0.2 Basophils # 0.1 Reactive Lymphocytes Present A Platelet Estimate Normal Sodium 134 L Potassium 4.2 Chloride 104 Carbon Dioxide 22 BUN 23 Creatinine 0.67 L Est GFR ( Amer) > 60 Est GFR (Non-Af Amer) > 60 BUN/Creatinine Ratio 34 H Glucose 122 H POC Glucose 121 H Calculated Osmolality 283 Calcium 8.7 Phosphorus 3.9 Magnesium 1.6 05/02/16 07:14 WBC RBC Hgb Hct MCV MCH MCHC RDW Plt Count MPV Immature Gran % Seg Neutrophils % Lymphocytes % Monocytes % Eosinophils % Basophils % Neutrophils # Lymphocytes # Monocytes # Eosinophils # Basophils # Reactive Lymphocytes Platelet Estimate Sodium Potassium Chloride Carbon Dioxide BUN Creatinine Est GFR ( Amer) Est GFR (Non-Af Amer) BUN/Creatinine Ratio Glucose POC Glucose 129 H Calculated Osmolality Calcium Phosphorus Magnesium Preliminary micro results at discharge 04/29/16 10:17 Anaerobic Culture - Preliminary Aspirate At this time, no anaerobic growth is present. The culture will be finalized after 5 days of incubation. - Impressions ITS Impressions Abdomen/Pelvis CT 04/28/16 12:40 IMPRESSION: 1. There is a progressive right lateral hepatic subcapsular fluid collection that now measures 3.5 cm in thickness compared to 1.8 cm. This demonstrates new internal gas foci consistent with a subhepatic abscess. 2. The previously identified right lateral peritoneal loculated fluid collection has almost completely resolved with the pigtail catheter in stable position. Contrast extends from the stomach across the entero-colonic anastomosis with no evidence of perforation. No small bowel obstruction. 3. Nonspecific mild nodular thickening of the gallbladder fundus. This could relate to secondary inflammation versus possible polyps, this could be further evaluated with ultrasound. The findings were sent to the Radiology Results Communication Center at 2:52 pm on 04/28/2016to be communicated to a licensed caregiver. D/ / 04/28/2016 15:02:09 Jose Brar MD / norma Interpreting Provider: Jose Brar MD Retroperitoneal Abscess Drainage 04/29/16 08:50 IMPRESSION: Successful CT guided placement of a right subcapsular hepatic abscess drainage catheter. Orders have been written for daily flushes and the catheter has been placed to ANDRÉS bulb suction. No immediate complications. D/ / Miguel Leo MD / Miguel Leo MD Interpreting Provider: Miguel Leo MD - Attending Attestation I examined this patient and my medical decision-making was reviewed with the [employer]ATOR/PA/Advanced Practice Nurse/Resident Physician. I agree with the documented findings, disposition and treatment plan as described except to the extent set forth below.
== END 2016-05-03 11:21 | disposition home or self-care (01) | DRG 371 ==
LOC: 3NENU → 3ANU 05-02 12:30
PROVIDERS: ADMIT Surgery; ATTEND Surgery

== ENCOUNTER 2016-05-14 09:26 | Inpatient (IN) ==
[2016-05-14 10:17] LABS: Basophils # 0.1 K/mcL (0.0-0.2); Basophils % 0.3 %; Eosinophils % 0.1 %; Hemoglobin 12.6 g/dL (12.9-16.9); Immature Granulocytes % 0.5 % (0-4); Lymphocytes # 1.5 K/mcL (0.6-4.6); Lymphocytes % 8.4 %; Mean Corpuscular HGB Conc 32.3 g/dL (31.6-35.5); Mean Corpuscular Hemoglobin 27.5 pg (28.0-33.3); Mean Platelet Volume 8.9 fL (9.4-12.4); Monocytes # 1.5 K/mcL (0.0-1.3); Monocytes % 8.3 %; Neutrophils # 15.1 K/mcL (1.6-8.9); Platelet Count 368 K/mcL (140-400); Red Blood Count 4.59 M/mcL (4.19-5.50); Red Cell Distribution Width 13.1 % (11.5-14.5); Segmented Neutrophils % 82.4 %
[2016-05-14 10:32] LABS: Alanine Aminotransferase 22 Units/L (0-55); Albumin 2.8 g/dL (3.5-5.0); Albumin/Globulin Ratio 0.6 (1.1-2.2); Alkaline Phosphatase 80 Units/L (38-126); Amylase 64 Units/L (25-125); Aspartate Amino Transferase 22 Units/L (5-34); BUN/Creatinine Ratio 16 (6-26); Bilirubin,Direct 0.3 mg/dL (0.0-0.5); Bilirubin,Indirect 0.2 mg/dL (0.0-1.2); Bilirubin,Total 0.5 mg/dL (0.2-1.2); Blood Urea Nitrogen 15 mg/dL (8-26); Calcium 9.2 mg/dL (8.6-10.8); Carbon Dioxide 21 mEq/L (19-29); Chloride 100 mEq/L (98-109); Globulin 4.7 g/dL (2.4-3.5); Glucose 117 mg/dL (70-99); Lipase 22 Units/L (8-78); Osmolality,Calculated 278 (280-300); Potassium 4.4 mEq/L (3.5-4.5); Sodium 133 mEq/L (136-145); Total Protein 7.5 g/dL (6.0-8.3); eGFR For African Americans > 60 (> 60); eGFR For Non-African Americans > 60 (> 60)
[2016-05-14 10:34] LABS: Bilirubin,Urine Moderate (Negative); Blood,Urine Negative (Negative); Clarity,Urine Clear (Clear); Color,Urine Yellow (Yellow); Glucose,Urine (UA) Normal (Normal); Ketones,Urine 15 mg/dL (Negative); Leukocyte Esterase,Urine Negative (Negative); Nitrite,Urine Negative (Negative); PH,Urine 5.5 pH Units (5.0-8.0); Protein,Urine 30 mg/dL (Neg-Trace); Specific Gravity,Urine 1.025 (1.010-1.025); Urobilinogen,Urine Normal (Normal)
[2016-05-14 10:42] LABS: Bacteria,Urine Moderate per hpf (None-Few); Hyaline Casts,Urine Few per lpf (None-Few); Mucus,Urine Few (Few); RBC,Urine 0-3 per hpf (0-3); WBC,Urine 0-3 per hpf (0-3)
--- NOTE | 2016-05-14 10:43 | Emergency Department Note ---
Disposition Clinical Impression: Abdominal abscess Disposition: Admitted As Inpatient Condition: Good Time of Disposition: 12:40 Abdominal Pain HPI - General Chief Complaint: ED Recheck/Abnormal Lab/Rx Stated Complaint: "pus building back up" Source: patient, family - History of Present Illness HPI Narrative: 65-year-old male presents to the emergency room complaining of an area on his RUQ that bulged out overnight and is tender. He had a recent colon resection with a complicated course. He had a surgical drain in place that was removed last monday. He had some pus draining from the wound, but no issues otherwise. He states that he woke up this morning around 0100 and noticed that the area beneath the site where the drain was removed had bulged out and has become tender. It is not erythemetous and is not draining. He denies any fevers, chills , sob, cp, dysuria, palpitations, diarrhea. He states that he feels otherwise well. Pain Scale: 6 - Related Data Home Medications Medication Instructions Recorded Confirmed Baclofen 20 mg PO TID 03/30/16 05/14/16 Ergocalciferol (VITAMIN D2) 400 unit PO HS 03/30/16 05/14/16 [Vitamin D] Ibuprofen [Motrin] 800 mg PO Q8HR PRN 03/30/16 05/14/16 Sertraline [Zoloft] 100 mg PO DAILY 03/30/16 05/14/16 TraZODone 50 mg PO HS 03/30/16 05/14/16 Losartan/HCTZ [Hyzaar 50-12.5 1 each PO DAILY 04/13/16 05/14/16 Tablet] Atenolol [Tenormin] 25 mg PO DAILY 05/14/16 05/14/16 Allergies Allergy/AdvReac Type Severity Reaction Status Date / Time No Known Allergies Allergy Verified 05/14/16 12:45 Constitutional: Denies: fever, chills, weakness, weight change Cardiovascular: Denies: chest pain, palpitations, dyspnea on exertion, edema, syncope Respiratory: Denies: cough, dyspnea, wheezes, hemoptysis, stridor Gastrointestinal: Reports: abdominal pain. Denies: nausea, vomiting, diarrhea, constipation Genitourinary: Denies: urgency, dysuria, frequency, hematuria Musculoskeletal: Denies: back pain, neck pain, arthralgia, myalgia Integumentary: Denies: rash, abrasion, lesions Neurological: Denies: headache, weakness, numbness, paresthesias, confusion, vertigo Abdominal Pain PMH - Past Medical History Medical history: Reports: arthritis, COPD, dementia, GERD, hyperlipidemia, hypertension Male Surgical History: Reports: hip replacement, other Psychiatric history: Reports: anxiety, depression, PTSD - Social History Smoking status: Current every day smoker Alcohol use: Reports: occasionally Drug use: Reports: none Physical Exam - General Limitations: no limitations General appearance: alert, in no apparent distress - Head Head exam: atraumatic, normocephalic, normal inspection - Eye Eye exam: Present: normal appearance, PERRL, EOMI - ENT ENT exam: normal oropharynx, mucous membranes moist - Neck Neck exam: Present: normal inspection, full ROM, trachea midline - Chest Chest inspection: Present: normal inspection, symmetric chest wall rise - Respiratory Respiratory exam: Present: normal lung sounds bilaterally. Absent: respiratory distress, wheezes - Cardiovascular Cardiovascular exam: Present: regular rate, normal rhythm, normal heart sounds - Abdominal Exam Abdominal exam: Present: soft, tenderness, normal bowel sounds. Absent: distention, rigidity Abdominal tenderness: Present: RUQ, moderate (worse when lying down, fluctuate area where drain was removed, no open wound or surrounding erythema or warmth) - Extremities Exam Extremities exam: Present: normal inspection, full ROM. Absent: tenderness, pedal edema - Back Exam Back exam: Present: normal inspection, full ROM. Absent: tenderness - Neurological Exam Neurological exam: Present: alert, oriented X3 - Psychiatric Psychiatric exam: Present: normal affect, normal mood - Skin Skin exam: Present: warm, dry, intact, normal color. Absent: rash, diaphoresis , erythema Course Course Narrative: 65-year-old male presents to the emergency room complaining of an area on his RUQ that bulged out overnight and is tender. He had a recent colon resection with a complicated course. He had a surgical drain in place that was removed last monday. He had some pus draining from the wound, but no issues otherwise. He states that he woke up this morning around 0100 and noticed that the area beneath the site where the drain was removed had bulged out and has become tender. It is not erythemetous and is not draining. He denies any fevers, chills , sob, cp, dysuria, palpitations, diarrhea. He states that he feels otherwise well. Patient appears well on exam. There is a healing surgical site on the RUQ. It is currently not draining, non-erythemetous. It protrudes and is fluctuant. It is tender to palpation more while the patient is lying down vs when he stands. He states that it is more painful when he is lying down. Dr. Ruiz had called about the patient [employer]. She requested abdominal labs and a CT abd with IV and oral contrast. The CBC reveals an elevated WBC at 18.3. CT of the abd/pelvis shows a right flank abcess and perihepatic vs hepatic subcapsular abscess. Results of CT discussed with Dr. Ruiz who will admit the patient to the surgical service, requests a dose of zosyn and blood cultures. - Consultations Consultation #1: Case disussed with Dr. Ruiz who has accepted the patient for admission to the surgical service. She would like the patient to receive a dose of zosyn, with blood cultures drawn prior to abx administration. Time: 12:34 Vital Signs Temperature 98 F 05/14/16 09:28 Pulse Rate 86 05/14/16 09:28 Respiratory Rate 18 05/14/16 09:28 Blood Pressure 123/70 05/14/16 09:28 O2 Sat by Pulse Oximetry 98 05/14/16 09:28 Temperature 98.2 F 05/14/16 13:08 Pulse Rate 75 05/14/16 11:47 Respiratory Rate 16 05/14/16 13:08 Blood Pressure 123/74 05/14/16 13:08 O2 Sat by Pulse Oximetry 97 05/14/16 11:47 Oxygen Delivery Oxygen Delivery Room Air Abdominal Pain - Medical Records Medical records reviewed: Yes I reviewed the patient's medical records. - Lab Data Lab results reviewed: Yes I reviewed the patient's lab results. Result diagrams: 05/14/16 10:08 05/14/16 10:08 Lab Results 05/14/16 05/14/16 05/14/16 Range/Units 10:08 10:08 10:08 WBC 18.3 H (4.3-11.1) K/mcL RBC 4.59 (4.19-5.50) M/mcL Hgb 12.6 L (12.9-16.9) g/dL Hct 39.0 (37.5-50.1) % MCV 85.0 (83.0-100.0) fL MCH 27.5 L (28.0-33.3) pg MCHC 32.3 (31.6-35.5) g/dL RDW 13.1 (11.5-14.5) % Plt Count 368 (140-400) K/mcL MPV 8.9 L (9.4-12.4) fL Immature Gran % 0.5 (0-4) % Seg Neutrophils % 82.4 % Lymphocytes % 8.4 % Monocytes % 8.3 % Eosinophils % 0.1 % Basophils % 0.3 % Neutrophils # 15.1 H (1.6-8.9) K/mcL Lymphocytes # 1.5 (0.6-4.6) K/mcL Monocytes # 1.5 H (0.0-1.3) K/mcL Eosinophils # 0.0 (0.0-0.6) K/mcL Basophils # 0.1 (0.0-0.2) K/mcL Sodium 133 L (136-145) mEq/L Potassium 4.4 (3.5-4.5) mEq/L Chloride 100 (98-109) mEq/L Carbon Dioxide 21 (19-29) mEq/L BUN 15 (8-26) mg/dL Creatinine 0.96 (0.72-1.25) mg/dL Est GFR ( Amer) > 60 (> 60) Est GFR (Non-Af Amer) > 60 (> 60) BUN/Creatinine Ratio 16 (6-26) Glucose 117 H (70-99) mg/dL Calculated Osmolality 278 L (280-300) Lactic Acid 1.2 (0.5-2.2) mmol/L Calcium 9.2 (8.6-10.8) mg/dL Total Bilirubin 0.5 (0.2-1.2) mg/dL Direct Bilirubin 0.3 (0.0-0.5) mg/dL Indirect Bilirubin 0.2 (0.0-1.2) mg/dL AST 22 (5-34) Units/L ALT 22 (0-55) Units/L Alkaline Phosphatase 80 (38-126) Units/L Serum Total Protein 7.5 (6.0-8.3) g/dL Albumin 2.8 L (3.5-5.0) g/dL Globulin 4.7 H (2.4-3.5) g/dL Albumin/Globulin Ratio 0.6 L (1.1-2.2) Amylase 64 (25-125) Units/L Lipase 22 (8-78) Units/L Urine Color (Yellow) Urine Clarity (Clear) Urine pH (5.0-8.0) pH Units Ur Specific Britt (1.010-1.025) Urine Protein (Neg-Trace) mg/dL Urine Glucose (UA) (Normal) mg/dL Urine Ketones (Negative) mg/dL Urine Blood (Negative) Urine Nitrite (Negative) Urine Bilirubin (Negative) Urine Urobilinogen (Normal) mg/dL Ur Leukocyte Esterase (Negative) Urine Microscopic RBC (0-3) per hpf Urine Microscopic WBC (0-3) per hpf Urine Bacteria (None-Few) per hpf Hyaline Casts (None-Few) per lpf Urine Mucus (Few) Ur Culture Indicated? (NO) 05/14/16 Range/Units 10:19 WBC (4.3-11.1) K/mcL RBC (4.19-5.50) M/mcL Hgb (12.9-16.9) g/dL Hct (37.5-50.1) % MCV (83.0-100.0) fL MCH (28.0-33.3) pg MCHC (31.6-35.5) g/dL RDW (11.5-14.5) % Plt Count (140-400) K/mcL MPV (9.4-12.4) fL Immature Gran % (0-4) % Seg Neutrophils % % Lymphocytes % % Monocytes % % Eosinophils % % Basophils % % Neutrophils # (1.6-8.9) K/mcL Lymphocytes # (0.6-4.6) K/mcL Monocytes # (0.0-1.3) K/mcL Eosinophils # (0.0-0.6) K/mcL Basophils # (0.0-0.2) K/mcL Sodium (136-145) mEq/L Potassium (3.5-4.5) mEq/L Chloride (98-109) mEq/L Carbon Dioxide (19-29) mEq/L BUN (8-26) mg/dL Creatinine (0.72-1.25) mg/dL Est GFR ( Amer) (> 60) Est GFR (Non-Af Amer) (> 60) BUN/Creatinine Ratio (6-26) Glucose (70-99) mg/dL Calculated Osmolality (280-300) Lactic Acid (0.5-2.2) mmol/L Calcium (8.6-10.8) mg/dL Total Bilirubin (0.2-1.2) mg/dL Direct Bilirubin (0.0-0.5) mg/dL Indirect Bilirubin (0.0-1.2) mg/dL AST (5-34) Units/L ALT (0-55) Units/L Alkaline Phosphatase (38-126) Units/L Serum Total Protein (6.0-8.3) g/dL Albumin (3.5-5.0) g/dL Globulin (2.4-3.5) g/dL Albumin/Globulin Ratio (1.1-2.2) Amylase (25-125) Units/L Lipase (8-78) Units/L Urine Color Yellow (Yellow) Urine Clarity Clear (Clear) Urine pH 5.5 (5.0-8.0) pH Units Ur Specific Britt 1.025 (1.010-1.025) Urine Protein 30 H (Neg-Trace) mg/dL Urine Glucose (UA) Normal (Normal) mg/dL Urine Ketones 15 H (Negative) mg/dL Urine Blood Negative (Negative) Urine Nitrite Negative (Negative) Urine Bilirubin Moderate H (Negative) Urine Urobilinogen Normal (Normal) mg/dL Ur Leukocyte Esterase Negative (Negative) Urine Microscopic RBC 0-3 (0-3) per hpf Urine Microscopic WBC 0-3 (0-3) per hpf Urine Bacteria Moderate H (None-Few) per hpf Hyaline Casts Few (None-Few) per lpf Urine Mucus Few (Few) Ur Culture Indicated? NO (NO) - Radiology Data Radiology results reviewed: Yes I reviewed the patient's radiology results. Abdomen/Pelvis CT 05/14/16 11:10 IMPRESSION: Right flank and perihepatic versus hepatic subcapsular abscesses D/ / Elier Hurley MD / Elier Hurlye MD Interpreting Provider: Elier Hurley MD Attestation Statement - Attestation Attestation: Patient was seen with resident physician. I reviewed the history, physical, assessment and plan, and agree with the findings. I also personally evaluated this patient and had [id number] time with this patient. 65-year-old male presents to the emergency department with chief complaint of right upper quadrant abdominal pain. Is actually contacted by Dr. Leonardo surgery prior to the patient's arrival. He has had a recent procedure with drain placed in the right upper quadrant and some fluid drain removal couple days. Since that time that area has gotten more painful and swollen which prompted a call to the surgeon, which prompted her sending him to the emergency department for evaluation treatment. Further conversation Dr. Leonardo requested full set of abdominal workup labs, as well as a full contrasted CT scan of the abdomen and pelvis to include IV and oral contrast. On examination patient is in use unremarkable. Heart and lungs normal. Abdomen is soft but he is tender and has some swelling in the right upper quadrant. The area of drain removal appears clean dry and intact. It is scabbed over and there is no purulent exudate that can be noted. There is also no evidence to suggest cellulitic changes. Extremities are unremarkable. We will do a workup as per surgical request, and follow-up with surgery for final disposition. Initial white blood cell count was 18,000, currently the patient is not taking antibiotics. CT scan revealed multiple abscesses in and around the liver. He was started on Zosyn per surgical request. He was admitted to surgery. I personally spoke with Dr. Leonardo to arrange for admission. I agree with the resident physician assessment and plan.
[2016-05-14] MEDS ORDERED: Piperacillin/Tazobactam 4.5 GM in D5% in Water (Mini-Bag+) 100 ML IVPB ONE (12:36)
[2016-05-14 14:01] LABS: INR 1.2
--- NOTE | 2016-05-14 14:07 | General Surg History&Physical ---
<Tanmay Nieves - Last Filed: 05/14/16 16:41> Date of Encounter: 05/14/16 Time of Encounter: 14:00 Assessment and Plan (1) Subhepatic abscess Current Visit: Yes Status: Acute NPO at midnight. IV antibiotics- Zosyn Continue anti-emetics prn. Consult to IR- spoke to Dr. Oneil- we will plan for CT guided drain placement tomorrow morning. He requested to be notified if INR >1.5. (PT is 13 and INR is 1.2) (2) Leukocytosis Current Visit: No Status: Acute WBC 18,300. Afebrile Secondary to subhepatic abscess. IV antibiotics-Zosyn Repeat AM labs Qualifiers: Leukocytosis type: unspecified Qualified Code(s): D72.829 - Elevated white blood cell count, unspecified (3) Hypertension Current Visit: No Status: Chronic Continue home Atenolol and losartan/HCTZ. Plan for NPO Qualifiers: Hypertension type: essential hypertension Qualified Code(s): I10 - Essential (primary) hypertension (4) Hyperglycemia Current Visit: No Status: Acute Will start low intensity corrective scale while NPO starting at midnight. (5) DVT prophylaxis Current Visit: No Status: Acute The assessment and plan as outlined above was discussed with the patient and/or family members who expressed understanding and agreement. All questions were answered. History of Present Illness Chief complaint: abdominal pain HPI: Mr. Pennington is a 65 year old male recently discharged on 05/03/16 after R colectomy with concern for anastamosis leakage with subhepatic abscess and drain placed by IR. Patient followed up with Dr. Watkins on 05/10/16, he had been doing better but states he continued to have white pus drainage. The drain was removed on Monday and patient denies any complaints until yesterday when he notes some pain in his RUQ. He notes swelling of his RUQ that he noticed at approx 1:30am today with worsening pain and tenderness. Exacerbated by movement and currently a 6/10 in severity. He also notes having chills, no documented fever, this AM. Patient was found to have a elevated WBC count of 18,300 in the ED today, though no fever. Past Med Surg Social Fam HX - Past Medical History Source: patient Medical history: arthritis, COPD, dementia, GERD, hyperlipidemia, hypertension Psychiatric history: anxiety, depression, PTSD - Past Surgical History Surgical History: colectomy, knee replacement, orthopedic, other - Social History Smoking Status: Current every day smoker Smokeless Tobacco Status: No Alcohol use: occasionally Drug use: none - Family History Father Living Status: Hx Family Cancer: Yes (colon) Medications and Allergies Baclofen 20 mg PO TID 03/30/16 [History] Ergocalciferol (VITAMIN D2) [Vitamin D] 400 unit PO HS 03/30/16 [History] Ibuprofen [Motrin] 800 mg PO Q8HR PRN 03/30/16 [History] Sertraline [Zoloft] 100 mg PO DAILY 03/30/16 [History] TraZODone 50 mg PO HS 03/30/16 [History] Losartan/HCTZ [Hyzaar 50-12.5 Tablet] 1 each PO DAILY 04/13/16 [History] Atenolol [Tenormin] 25 mg PO DAILY 05/14/16 [History] Allergies No Known Allergies Allergy (Verified 05/14/16 12:45) Review of Systems All systems PM: A 10-system review of systems was performed and is negative for pertinent findings except as documented above in the HPI. - Constitutional chills, excessive sweating, no fever(s) - EENT Nose, mouth and throat: no dysphagia - Cardiovascular no chest pain, no dyspnea, no edema - Respiratory no dyspnea - Gastrointestinal abdominal pain, no constipation, no diarrhea, no nausea, no vomiting - Genitourinary flank pain (R) - Musculoskeletal no muscle weakness - Neurological no confusion, no dizziness - Psychiatric no anxiety General Surgery Exam Initial Vital Signs Temp Pulse Resp BP Pulse Ox 98 F 86 18 123/70 98 05/14/16 09:28 05/14/16 09:28 05/14/16 09:28 05/14/16 09:28 05/14/16 09:28 - General physical appearance well developed, well nourished, moderate distress - Eyes normal ocular movement - ENT normal mucosa, atraumatic, normocephalic - Neck trachea midline - Respiratory normal respiratory effort, clear to auscultation - Cardiovascular Cardiovascular exam: Present: RRR - Abdomen Abdomen general surgery: Present: bowel sounds present, soft, tender, masses ( RUQ mass with well defined borders, tender to palpation.) Abdominal Tenderness: Present: RUQ - Integumentary Integumentary general surgery: Present: warm and dry, no abnormal pigmentation - Neurologic Present: CN 2-12 grossly intact - Musculoskeletal Present: normal gait - Psychiatric Psychiatric general surgery: Present: A&Ox3, speech is normal, memory intact Results - Labs 05/14/16 10:08 05/14/16 10:08 Abnormal lab results WBC 18.3 K/mcL (4.3-11.1) H 05/14/16 10:08 Hgb 12.6 g/dL (12.9-16.9) L 05/14/16 10:08 MCH 27.5 pg (28.0-33.3) L 05/14/16 10:08 MPV 8.9 fL (9.4-12.4) L 05/14/16 10:08 Neutrophils # 15.1 K/mcL (1.6-8.9) H 05/14/16 10:08 Monocytes # 1.5 K/mcL (0.0-1.3) H 05/14/16 10:08 PT 13.0 Seconds (9.4-12.1) H 05/14/16 13:49 Sodium 133 mEq/L (136-145) L 05/14/16 10:08 Glucose 117 mg/dL (70-99) H 05/14/16 10:08 Calculated Osmolality 278 (280-300) L 05/14/16 10:08 Albumin 2.8 g/dL (3.5-5.0) L 05/14/16 10:08 Globulin 4.7 g/dL (2.4-3.5) H 05/14/16 10:08 Albumin/Globulin Ratio 0.6 (1.1-2.2) L 05/14/16 10:08 Urine Protein 30 mg/dL (Neg-Trace) H 05/14/16 10:19 Urine Ketones 15 mg/dL (Negative) H 05/14/16 10:19 Urine Bilirubin Moderate (Negative) H 05/14/16 10:19 Urine Bacteria Moderate per hpf (None-Few) H 05/14/16 10:19 All other labs normal. <Marisabel Ruiz - Last Filed: 05/15/16 03:53> Date of Encounter: 05/14/16 Assessment and Plan (1) Subhepatic abscess Current Visit: Yes Status: Acute Discussed with the patient the CT scan findings, and leukocytosis. He has a recurrence of the subhepatic abscess. The resident spoke with IR and they will plan to place a drain tomorrow morning. He will have regular diet and be nothing by mouth midnight. When necessary pain control. IV fluid hydration after midnight. IV antibiotics, Zosyn. The assessment and plan as outlined above was discussed with the patient and/or family members who expressed understanding and agreement. All questions were answered. (2) DVT prophylaxis Current Visit: No Status: Acute EPCD The assessment and plan as outlined above was discussed with the patient and/or family members who expressed understanding and agreement. All questions were answered. (3) Leukocytosis Current Visit: No Status: Acute The assessment and plan as outlined above was discussed with the patient and/or family members who expressed understanding and agreement. All questions were answered. Qualifiers: Leukocytosis type: unspecified Qualified Code(s): D72.829 - Elevated white blood cell count, unspecified (4) Hypertension Current Visit: No Status: Chronic Continue home medication, monitor The assessment and plan as outlined above was discussed with the patient and/or family members who expressed understanding and agreement. All questions were answered. Qualifiers: Hypertension type: essential hypertension Qualified Code(s): I10 - Essential (primary) hypertension History of Present Illness HPI: Mr. Pennington is a 65 year old male who had a right colectomy in the end of March. In April he returned with a subhepatic abscess and concern for an anastomotic leak. The drain apparently initially look concerning for stool but clinically cleared. He was on antibiotics at that time. The drain cultures grew out Escherichia coli. This past Monday he was seen in the office and the drain was removed. The patient called the on-call number today and complained of increasing right upper quadrant pain, pressure in the last 2 days. He states the area of the previous drain site has become increasingly swollen, tender, and red. He denies any drainage from the skin surface. He states he has had tactile fevers but has not necessarily taken his temperature, and complains of chills. He denies any problems eating and he is having soft bowel movements. Past Med Surg Social Fam HX - Past Surgical History Surgical History: colectomy (Right) Review of Systems All systems PM: reviewed and no additional remarkable complaints except as stated All systems PM: A 10-system review of systems was performed and is negative for pertinent findings except as documented above in the HPI. General Surgery Exam Initial Vital Signs Temp Pulse Resp BP Pulse Ox 98 F 86 18 123/70 98 05/14/16 09:28 05/14/16 09:28 05/14/16 09:28 05/14/16 09:28 05/14/16 09:28 - General physical appearance well developed, well nourished, no distress - Eyes PERRL, normal ocular movement - ENT normal mucosa, atraumatic, normocephalic - Neck trachea midline - Respiratory normal respiratory effort, clear to auscultation - Cardiovascular Cardiovascular exam: Present: RRR, no murmurs/rubs/gallops - Abdomen Abdomen general surgery: Present: bowel sounds present, soft, tender Abdominal Tenderness: Present: RUQ (There is erythema and swelling around the previous ANDRÉS drain site. No discharge) - Integumentary Integumentary general surgery: Present: warm and dry - Neurologic Present: CN 2-12 grossly intact, normal coordination - Musculoskeletal Present: normal gait, normal posture - Psychiatric Psychiatric general surgery: Present: A&Ox3, speech is normal Results - Labs 05/14/16 10:08 05/14/16 10:08 Abnormal lab results WBC 18.3 K/mcL (4.3-11.1) H 05/14/16 10:08 Hgb 12.6 g/dL (12.9-16.9) L 05/14/16 10:08 MCH 27.5 pg (28.0-33.3) L 05/14/16 10:08 MPV 8.9 fL (9.4-12.4) L 05/14/16 10:08 Neutrophils # 15.1 K/mcL (1.6-8.9) H 05/14/16 10:08 Monocytes # 1.5 K/mcL (0.0-1.3) H 05/14/16 10:08 PT 13.0 Seconds (9.4-12.1) H 05/14/16 13:49 Sodium 133 mEq/L (136-145) L 05/14/16 10:08 Glucose 117 mg/dL (70-99) H 05/14/16 10:08 POC Glucose 111 (58-89) H 05/14/16 23:52 Calculated Osmolality 278 (280-300) L 05/14/16 10:08 Albumin 2.8 g/dL (3.5-5.0) L 05/14/16 10:08 Globulin 4.7 g/dL (2.4-3.5) H 05/14/16 10:08 Albumin/Globulin Ratio 0.6 (1.1-2.2) L 05/14/16 10:08 Urine Protein 30 mg/dL (Neg-Trace) H 05/14/16 10:19 Urine Ketones 15 mg/dL (Negative) H 05/14/16 10:19 Urine Bilirubin Moderate (Negative) H 05/14/16 10:19 Urine Bacteria Moderate per hpf (None-Few) H 05/14/16 10:19 All other labs normal. - Imaging CT scan - abdomen: report reviewed, image reviewed CT scan - pelvis: report reviewed, image reviewed - Attending Attestation I examined this patient and my medical decision-making was reviewed with the PUMP SERVICER HELPER/PA/Advanced Practice Nurse/Resident Physician. I agree with the documented findings, disposition and treatment plan as described except to the extent set forth below.
[2016-05-14] MEDS ORDERED: 0.9 % Sodium Chloride 1,000 ML IVC SCH (15:51)
[2016-05-14] MEDS ORDERED: Ondansetron 4 MG/2 ML VIAL IVP PRN (15:51)
[2016-05-14] MEDS ORDERED: *HR* Morphine 2 MG/ML SYRINGE IVP PRN (15:51)
[2016-05-14] MEDS ORDERED: Naloxone 0.4 MG/ML INJ IVP PRN (15:51)
[2016-05-14] MEDS ORDERED: *HR* Promethazine 25 MG/ML VIAL IVP PRN (15:51)
[2016-05-14] MEDS ORDERED: D5% in Water 1,000 ML IV PRN (16:14)
[2016-05-14] MEDS ORDERED: Dextrose Gel 15 GM PO PRN ×2 (16:14)
[2016-05-14] MEDS ORDERED: *HR* Dextrose 50 % in Water (Syg) 50 ML SYRINGE IVP PRN (16:14)
[2016-05-14] MEDS: *HR* OxyCODONE/APAP 5/325 TABLET PO PRN (18:17)
[2016-05-14] MEDS: Piperacillin/Tazobactam 3.375 GM in D5% in Water (Mini-Bag+) 100 ML IVPB SCH (19:57)
[2016-05-14] MEDS: Baclofen 10 MG TABLET PO SCH (19:57)
[2016-05-14] MEDS: traZODone 50 MG TABLET PO SCH (19:57)
[2016-05-14] MEDS: Insulin LISPRO 300 UNITS/3 ML VIAL SQ SCH (23:54)
[2016-05-15] MEDS: Piperacillin/Tazobactam 3.375 GM in D5% in Water (Mini-Bag+) 100 ML IVPB SCH ×3 (04:37→20:19)
[2016-05-15] MEDS: *HR* OxyCODONE/APAP 5/325 TABLET PO PRN ×3 (04:37→20:19)
[2016-05-15 04:46] LABS: Basophils % 0.2 %; Eosinophils # 0.1 K/mcL (0.0-0.6); Eosinophils % 0.4 %; Hematocrit 35.9 % (37.5-50.1); Hemoglobin 11.9 g/dL (12.9-16.9); Immature Granulocytes % 0.5 % (0-4); Lymphocytes # 2.2 K/mcL (0.6-4.6); Mean Corpuscular HGB Conc 33.1 g/dL (31.6-35.5); Mean Corpuscular Hemoglobin 28.3 pg (28.0-33.3); Mean Corpuscular Volume 85.3 fL (83.0-100.0); Mean Platelet Volume 9.3 fL (9.4-12.4); Monocytes # 1.4 K/mcL (0.0-1.3); Monocytes % 8.4 %; Neutrophils # 13.3 K/mcL (1.6-8.9); Platelet Count 323 K/mcL (140-400); Red Blood Count 4.21 M/mcL (4.19-5.50); Segmented Neutrophils % 77.5 %
[2016-05-15 04:51] LABS: Blood Urea Nitrogen 14 mg/dL (8-26); Carbon Dioxide 21 mEq/L (19-29); Chloride 100 mEq/L (98-109); Potassium 4.2 mEq/L (3.5-4.5); Sodium 133 mEq/L (136-145)
[2016-05-15 04:52] LABS: BUN/Creatinine Ratio 18 (6-26); Calcium 8.9 mg/dL (8.6-10.8); Glucose 103 mg/dL (70-99); Osmolality,Calculated 277 (280-300); eGFR For African Americans > 60 (> 60); eGFR For Non-African Americans > 60 (> 60)
[2016-05-15] MEDS: Insulin LISPRO 300 UNITS/3 ML VIAL SQ SCH ×2 (05:47→12:27)
[2016-05-15] MEDS ORDERED: *HR* FentaNYL (PF) 100 MCG/2 ML VIAL IV PRN (09:03)
[2016-05-15] MEDS ORDERED: *HR* Midazolam HCl 2 MG/2 ML VIAL IV PRN (09:03)
[2016-05-15] MEDS ORDERED: 0.9 % Sodium Chloride 500 ML ONE (09:10)
--- NOTE | 2016-05-15 09:47 | IR Procedure Note ---
Date of procedure: 05/15/16 Consent Obtained: Verbal consent, Written consent Timeout: Correct patient and procedure verified, Correct site verified, Time out performed, Skin prep completed Local anesthetic: Lidocaine 1% Indications: Abdominal abscesses Procedure Performed: Abscess drain x2 Site/Technique: CT guided abscess drain x2 Results/Findings: 2 abscesses with drains placed Estimated blood loss (cc): 1 Complications: None; Tolerated procedure well Post Procedure Treatment Plan: Continue inpatient care
[2016-05-15] MEDS: Losartan/HCTZ 50-12.5 TABLET PO SCH (10:33)
[2016-05-15] MEDS: Baclofen 10 MG TABLET PO SCH ×3 (10:33→20:19)
[2016-05-15] MEDS: Pantoprazole 40 MG VIAL IVP SCH (10:33)
--- NOTE | 2016-05-15 16:08 | General Surgery Progress Note ---
<Tanmay Nieves - Last Filed: 05/15/16 16:05> Date of Encounter: 05/15/16 Time of Encounter: 10:55 - Assessment and Plan (1) Subhepatic abscess Current Visit: Yes Status: Acute IR placed two ANDRÉS drains this AM, with output 20ml and 30ml respectively. Difficulty keeping seal/negative pressure within bulb of the more anterior drain. phlebotomy program coordinator is currently tracking down replacement tubing to see if this will fix current issue. IV antibiotics- Zosyn Continue anti-emetics prn. Regular diet. Discontinued accu-checks as patient is no longer NPO and patient did not require any insulin. (2) Leukocytosis Current Visit: No Status: Acute Improving WBC 18.3>17.2 Afebrile Secondary to subhepatic abscess. IV antibiotics-Zosyn Repeat AM labs Qualifiers: Leukocytosis type: unspecified Qualified Code(s): D72.829 - Elevated white blood cell count, unspecified (3) Hypertension Current Visit: No Status: Chronic Continue home Atenolol and losartan/HCTZ. Consider holding if SBP less than 100 Qualifiers: Hypertension type: essential hypertension Qualified Code(s): I10 - Essential (primary) hypertension (4) DVT prophylaxis Current Visit: No Status: Acute EPCDs for DVT prophylaxis. Subjective Patient reports: no new complaints, feels better, still having pain, tolerating a regular diet, voiding w/o difficulty, afebrile Objective Vital Signs - Last 8 Hours Temp Pulse Resp BP Pulse Ox 05/15/16 14:50 98.4 F 71 16 103/57 96 05/15/16 10:00 98.4 F 86 16 123/68 96 05/15/16 09:38 85 14 98/63 99 05/15/16 09:29 93 10 98/59 99 Intake and Output 05/15/16 05/15/16 05/15/16 07:59 15:59 23:59 Intake Total 340 / 340 Output Total 300 / 300 175 / 175 Balance -300 / -300 165 / 165 Intake: IV Fluids 100 / 100 Zosyn 3.375 GM In 100 / 100 Dextrose 5% (Minibag+) 100 ML 100 ML @ 25 mls/hr IVPB Q8H [facility] Rx#: [id number] Oral 240 / 240 Output: Urine 300 / 300 125 / 125 Wound Drainage 50 / 50 Right Lower 20 / 20 Right Upper 30 / 30 Other: Meal Lunch Percent of Meal Consumed 75% # Bowel Movements 0 0 Weight 100.425 kg Blood Glucose* 122 128 Patient Weight 05/15/16 23:59 Weight 100.425 kg - General physical appearance well developed, well nourished, no distress - Eyes normal ocular movement - ENT normal mucosa, atraumatic, normocephalic - Neck Neck exam: trachea midline - Respiratory normal respiratory effort, clear to auscultation - Cardiovascular Cardiovascular exam: Present: RRR - Abdomen Abdomen: Present: bowel sounds present, soft, tender, masses (RUQ mass with well defined borders, tender to palpation; two ANDRÉS drains present in RUQ (50ml total between both drains since placement today).) - Integumentary other (mild erythema present in the RUQ around ANDRÉS sites) - Neurologic CN 2-12 grossly intact - Musculoskeletal normal posture - Psychiatric oriented to time, oriented to person, oriented to place, speech is normal, memory intact - Labs 05/15/16 03:50 05/15/16 03:50 Diabetes panel 05/15/16 Range/Units 03:50 Sodium 133 L (136-145) mEq/L Potassium 4.2 (3.5-4.5) mEq/L Chloride 100 (98-109) mEq/L Carbon Dioxide 21 (19-29) mEq/L BUN 14 (8-26) mg/dL Creatinine 0.80 (0.72-1.25) mg/dL Glucose 103 H (70-99) mg/dL Calcium 8.9 (8.6-10.8) mg/dL Calcium panel 05/15/16 Range/Units 03:50 Calcium 8.9 (8.6-10.8) mg/dL Pituitary panel 05/15/16 Range/Units 03:50 Sodium 133 L (136-145) mEq/L Potassium 4.2 (3.5-4.5) mEq/L Chloride 100 (98-109) mEq/L Carbon Dioxide 21 (19-29) mEq/L BUN 14 (8-26) mg/dL Creatinine 0.80 (0.72-1.25) mg/dL Glucose 103 H (70-99) mg/dL Calcium 8.9 (8.6-10.8) mg/dL Adrenal panel 01/29/17 Range/Units 03:50 Sodium 133 L (136-145) mEq/L Potassium 4.2 (3.5-4.5) mEq/L Chloride 100 (98-109) mEq/L Carbon Dioxide 21 (19-29) mEq/L BUN 14 (8-26) mg/dL Creatinine 0.80 (0.72-1.25) mg/dL Glucose 103 H (70-99) mg/dL Calcium 8.9 (8.6-10.8) mg/dL Consult Discharge Plan - Plan [facility]errals: [facility] Care Provider[facility] - 05/27/16 2:15 pm <Marisabel Ruiz - Last Filed: 05/17/16 13:19> - Assessment and Plan (1) Subhepatic abscess Current Visit: Yes Status: Acute ANDRÉS drains placed by IR today with purlent drainage, gram stain w GPC, continue zosyn trend wbc continue regular diet prn pain control Dr Watkins to return tomorrow and resume care (2) DVT prophylaxis Current Visit: No Status: Acute (3) Leukocytosis Current Visit: No Status: Acute Qualifiers: Leukocytosis type: unspecified Qualified Code(s): D72.829 - Elevated white blood cell count, unspecified (4) Hypertension Current Visit: No Status: Chronic Qualifiers: Hypertension type: essential hypertension Qualified Code(s): I10 - Essential (primary) hypertension Subjective Patient reports: no new complaints, feels better (since drain placed), pain is less, tolerating a regular diet, voiding w/o difficulty Objective Vital Signs - Last 8 Hours Temp Pulse Resp BP Pulse Ox 05/15/16 14:50 98.4 F 71 16 103/57 96 05/15/16 10:00 98.4 F 86 16 123/68 96 05/15/16 09:38 85 14 98/63 99 Intake and Output 05/15/16 05/15/16 05/15/16 07:59 15:59 23:59 Intake Total 340 / 340 Output Total 300 / 300 175 / 175 Balance -300 / -300 165 / 165 Intake: IV Fluids 100 / 100 Zosyn 3.375 GM In 100 / 100 Dextrose 5% (Minibag+) 100 ML 100 ML @ 25 mls/hr IVPB Q8H [facility] Rx#: [id number] Oral 240 / 240 Output: Urine 300 / 300 125 / 125 Wound Drainage 50 / 50 Right Lower 20 / 20 Right Upper 30 / 30 Other: Meal Lunch Percent of Meal Consumed 75% # Bowel Movements 0 0 Weight 100.425 kg Blood Glucose* 122 128 Patient Weight 05/15/16 23:59 Weight 100.425 kg - General physical appearance well developed, well nourished, no distress - Eyes PERRL, normal ocular movement - ENT normal mucosa, atraumatic, normocephalic - Neck Neck exam: trachea midline - Respiratory normal expansion, clear to auscultation - Cardiovascular Cardiovascular exam: Present: RRR - Abdomen Abdomen: Present: bowel sounds present, soft, tender Abdominal Tenderness: RUQ Additional Comments: ANDRÉS drains x 2 - purulent drainage - Integumentary no rash, no growths - Neurologic CN 2-12 grossly intact - Musculoskeletal normal posture - Psychiatric oriented to time, memory intact - Labs 05/17/16 04:21 05/15/16 03:50 Diabetes panel 05/15/16 Range/Units 03:50 Sodium 133 L (136-145) mEq/L Potassium 4.2 (3.5-4.5) mEq/L Chloride 100 (98-109) mEq/L Carbon Dioxide 21 (19-29) mEq/L BUN 14 (8-26) mg/dL Creatinine 0.80 (0.72-1.25) mg/dL Glucose 103 H (70-99) mg/dL Calcium 8.9 (8.6-10.8) mg/dL Calcium panel 05/15/16 Range/Units 03:50 Calcium 8.9 (8.6-10.8) mg/dL Pituitary panel 05/15/16 Range/Units 03:50 Sodium 133 L (136-145) mEq/L Potassium 4.2 (3.5-4.5) mEq/L Chloride 100 (98-109) mEq/L Carbon Dioxide 21 (19-29) mEq/L BUN 14 (8-26) mg/dL Creatinine 0.80 (0.72-1.25) mg/dL Glucose 103 H (70-99) mg/dL Calcium 8.9 (8.6-10.8) mg/dL Adrenal panel 05/15/16 Range/Units 03:50 Sodium 133 L (136-145) mEq/L Potassium 4.2 (3.5-4.5) mEq/L Chloride 100 (98-109) mEq/L Carbon Dioxide 21 (19-29) mEq/L BUN 14 (8-26) mg/dL Creatinine 0.80 (0.72-1.25) mg/dL Glucose 103 H (70-99) mg/dL Calcium 8.9 (8.6-10.8) mg/dL - Attending Attestation I examined this patient and my medical decision-making was reviewed with the CASH PERSON/PA/Advanced Practice Nurse/Resident Physician. I agree with the documented findings, disposition and treatment plan as described except to the extent set forth below.
[2016-05-15] MEDS: *HR* Heparin 5,000 UNIT/ML VIAL SQ SCH (18:26)
[2016-05-15] MEDS: traZODone 50 MG TABLET PO SCH (20:19)
[2016-05-16] MEDS: Piperacillin/Tazobactam 3.375 GM in D5% in Water (Mini-Bag+) 100 ML IVPB SCH ×3 (04:07→20:08)
[2016-05-16 04:47] LABS: Basophils % 0.3 %; Eosinophils # 0.2 K/mcL (0.0-0.6); Eosinophils % 1.3 %; Hematocrit 34.6 % (37.5-50.1); Hemoglobin 11.3 g/dL (12.9-16.9); Immature Granulocytes % 0.3 % (0-4); Lymphocytes # 1.9 K/mcL (0.6-4.6); Lymphocytes % 16.6 %; Mean Corpuscular HGB Conc 32.7 g/dL (31.6-35.5); Mean Corpuscular Hemoglobin 28.1 pg (28.0-33.3); Mean Corpuscular Volume 86.1 fL (83.0-100.0); Mean Platelet Volume 9.4 fL (9.4-12.4); Monocytes # 0.9 K/mcL (0.0-1.3); Neutrophils # 8.4 K/mcL (1.6-8.9); Platelet Count 274 K/mcL (140-400); Red Blood Count 4.02 M/mcL (4.19-5.50); Red Cell Distribution Width 12.9 % (11.5-14.5); Segmented Neutrophils % 73.5 %
[2016-05-16] MEDS: Baclofen 10 MG TABLET PO SCH ×3 (08:46→20:06)
[2016-05-16] MEDS: Pantoprazole 40 MG VIAL IVP SCH (08:46)
[2016-05-16] MEDS: Losartan/HCTZ 50-12.5 TABLET PO SCH (08:48)
[2016-05-16] MEDS: *HR* OxyCODONE/APAP 5/325 TABLET PO PRN ×2 (08:54→16:17)
[2016-05-16] MEDS: *HR* Heparin 5,000 UNIT/ML VIAL SQ SCH ×2 (09:25→20:05)
--- NOTE | 2016-05-16 11:01 | General Surgery Progress Note ---
<Tanmay Nieves - Last Filed: 05/16/16 11:11> Date of Encounter: 05/16/16 Time of Encounter: 10:59 - Assessment and Plan (1) Subhepatic abscess Current Visit: Yes Status: Acute IR placed two ANDRÉS drains yesterday. Issues with keeping seal/negative pressure within bulb of the more superior/anterior drain. IR flushed drain this AM, finding patent opening at previous ANDRÉS site, tegaderm placed over area. IV antibiotics- Zosyn Continue anti-emetics prn. Regular diet. (2) Leukocytosis Current Visit: No Status: Acute Improving WBC 18.3>17.2>11.5 Afebrile Secondary to subhepatic abscess. IV antibiotics-Zosyn Repeat AM labs Qualifiers: Leukocytosis type: unspecified Qualified Code(s): D72.829 - Elevated white blood cell count, unspecified (3) Hypertension Current Visit: No Status: Chronic Continue home Atenolol and losartan/HCTZ. Consider holding if SBP less than 100 Qualifiers: Hypertension type: essential hypertension Qualified Code(s): I10 - Essential (primary) hypertension (4) DVT prophylaxis Current Visit: No Status: Acute EPCDs for DVT prophylaxis. Subjective Patient reports: feels better, still having pain, pain is less, afebrile, other (ANDRÉS leak noted yesterday, IR called this morning to address.) Objective Vital Signs - Last 8 Hours Temp Pulse Resp BP Pulse Ox 05/16/16 04:53 97.5 F L 57 16 104/56 97 Intake and Output 05/15/16 05/16/16 05/16/16 23:59 07:59 15:59 Intake Total 460 / 460 100 / 100 Output Total 140 / 140 Balance 450 / 450 -40 / -40 Intake: IV Fluids 100 / 100 100 / 100 Zosyn 3.375 GM In 100 / 100 100 / 100 Dextrose 5% (Minibag+) 100 ML 100 ML @ 25 mls/hr IVPB Q8H [facility] Rx#: [id number] Oral 360 / 360 0 / 0 Output: Urine 0 / 0 100 / 100 Wound Drainage 40 / 40 Right Lower 0 / 0 20 / 20 Right Upper 20 / 20 Other: Meal Dinner NPO Percent of Meal Consumed 25% Stool Size Moderate Stool Color Brown # Voids 1 # Bowel Movements 0 Weight 100.4 kg Blood Glucose* 102 Patient Weight 05/16/16 23:59 Weight 100.4 kg - General physical appearance well developed, well nourished, no distress - Eyes normal ocular movement - ENT normal mucosa, atraumatic, normocephalic - Neck Neck exam: trachea midline - Respiratory normal respiratory effort, clear to auscultation - Cardiovascular Cardiovascular exam: Present: RRR - Abdomen Abdomen: Present: bowel sounds present, soft, tender (mildly), wound (patent previous ANDRÉS drain site in RUQ, in addition two new ANDRÉS drains (output of 60ml total yesterday).) - Incision Incision: Present: clean and dry, erythema (mild) - Integumentary no rash - Neurologic CN 2-12 grossly intact - Musculoskeletal normal gait, normal posture - Psychiatric oriented to time, oriented to person, oriented to place, speech is normal, memory intact - Labs 05/16/16 04:04 05/15/16 03:50 Consult Discharge Plan - Plan [facility]errals: [facility] [Primary Care Provider] - 05/27/16 2:15 pm <Avery Watkins E - Last Filed: 05/16/16 15:56> - Assessment and Plan (1) Subhepatic abscess Current Visit: Yes Status: Acute Drains with serous fluid currently. will cont the antibiotics and re assess tomorrow. Objective Vital Signs - Last 8 Hours Temp Pulse Resp BP Pulse Ox 05/16/16 15:32 98.9 F 77 16 125/58 95 05/16/16 10:59 94.4 F L 56 16 106/71 96 Intake and Output 05/15/16 05/16/16 05/16/16 23:59 07:59 15:59 Intake Total 460 / 460 100 / 100 100 / 100 Output Total 140 / 140 450 / 450 Balance 450 / 450 -40 / -40 -350 / -350 Intake: IV Fluids 100 / 100 100 / 100 100 / 100 Zosyn 3.375 GM In 100 / 100 100 / 100 100 / 100 Dextrose 5% (Minibag+) 100 ML 100 ML @ 25 mls/hr IVPB Q8H [facility] Rx#: [id number] Oral 360 / 360 0 / 0 0 / 0 Output: Urine 0 / 0 100 / 100 450 / 450 Wound Drainage 40 / 40 0 / 0 Right Lower 0 / 0 0 / 0 Right Upper 0 / 0 Other: Meal Dinner Lunch Percent of Meal Consumed 25% 25% Stool Size Moderate Stool Color Brown # Voids 1 # Bowel Movements 0 0 Weight 100.4 kg Blood Glucose* 102 Patient Weight 05/16/16 23:59 Weight 100.4 kg - Labs 05/16/16 04:04 05/15/16 03:50
[2016-05-16] MEDS: traZODone 50 MG TABLET PO SCH (20:07)
[2016-05-17 04:49] LABS: Basophils % 0.4 %; Eosinophils # 0.3 K/mcL (0.0-0.6); Eosinophils % 3.9 %; Hematocrit 33.7 % (37.5-50.1); Immature Granulocytes % 0.2 % (0-4); Lymphocytes # 1.4 K/mcL (0.6-4.6); Mean Corpuscular HGB Conc 32.6 g/dL (31.6-35.5); Mean Corpuscular Hemoglobin 28.2 pg (28.0-33.3); Mean Corpuscular Volume 86.4 fL (83.0-100.0); Mean Platelet Volume 9.5 fL (9.4-12.4); Monocytes # 0.7 K/mcL (0.0-1.3); Monocytes % 8.3 %; Platelet Count 274 K/mcL (140-400); Red Cell Distribution Width 12.9 % (11.5-14.5); Segmented Neutrophils % 71.2 %
[2016-05-17] MEDS: Piperacillin/Tazobactam 3.375 GM in D5% in Water (Mini-Bag+) 100 ML IVPB SCH (04:57)
[2016-05-17] MEDS: *HR* OxyCODONE/APAP 5/325 TABLET PO PRN (05:40)
[2016-05-17] MEDS: *HR* Heparin 5,000 UNIT/ML VIAL SQ SCH (06:10)
[2016-05-17] MEDS: Baclofen 10 MG TABLET PO SCH (10:12)
[2016-05-17] MEDS: Pantoprazole 40 MG VIAL IVP SCH (10:12)
[2016-05-17] MEDS: Losartan/HCTZ 50-12.5 TABLET PO SCH (10:12)
[2016-05-17 11:21] VITALS: BP 97/69
--- NOTE | 2016-05-17 14:25 | Discharge Summary ---
Date of Encounter: 05/17/16 Time of Encounter: 14:19 - Discharge Diagnosis (1) Intra-abdominal abscess Priority: Primary Status: Acute (2) Leukocytosis Priority: Secondary Status: Resolved Qualifiers: Leukocytosis type: unspecified Qualified Code(s): D72.829 - Elevated white blood cell count, unspecified - Discharge Medications Prescriptions: Amoxicillin/Clavulanate [Augmentin] 875 mg PO BIDWM #28 tablet Tramadol HCl [Ultram] 50 mg PO QID PRN #30 tab PRN Reason: Pain Home Medications: Baclofen 20 mg PO TID 03/30/16 [History] Ergocalciferol (VITAMIN D2) [Vitamin D] 400 unit PO HS 03/30/16 [History] Ibuprofen [Motrin] 800 mg PO Q8HR PRN 03/30/16 [History] Sertraline [Zoloft] 100 mg PO DAILY 03/30/16 [History] TraZODone 50 mg PO HS 03/30/16 [History] Losartan/HCTZ [Hyzaar 50-12.5 Tablet] 1 each PO DAILY 04/13/16 [History] Atenolol [Tenormin] 25 mg PO DAILY 05/14/16 [History] Amoxicillin/Clavulanate [Augmentin] 875 mg PO BIDWM #28 tablet 05/17/16 [Rx] Tramadol HCl [Ultram] 50 mg PO QID PRN #30 tab 05/17/16 [Rx] Allergies/Adverse Reactions: Allergies No Known Allergies Allergy (Verified 05/14/16 12:45) General Surgery Exam Initial Vital Signs Temp Pulse Resp BP Pulse Ox 98 F 86 18 123/70 98 05/14/16 09:28 05/14/16 09:28 05/14/16 09:28 05/14/16 09:28 05/14/16 09:28 - General physical appearance well developed, well nourished, no distress - Eyes normal ocular movement - ENT normal mucosa, atraumatic, normocephalic - Neck trachea midline - Respiratory normal respiratory effort, clear to auscultation - Cardiovascular Cardiovascular exam: Present: RRR, 15, 16 - Abdomen Abdomen general surgery: Present: bowel sounds present, soft, non tender, wound (Pigtail drains X2 with cloudy, yellow drainage noted) - Incision Incision: Present: clean and dry, intact - Integumentary Integumentary general surgery: Present: warm and dry - Neurologic Present: CN 2-12 grossly intact, normal coordination, normal sensation - Musculoskeletal Present: normal gait, normal posture - Psychiatric Psychiatric general surgery: Present: appropriate, oriented to person, oriented to place, oriented to time, speech is normal, memory intact Date of admission: 05/15/16 17:39 Primary care physician: PCP [place] Discharging clinician: Avery Watkins (Keerthi Natarajan) Anticipated date of discharge: 05/17/16 - Patient Status Disposition: Home, Self-Care Condition: Good Functional capacity at discharge: independent ambulation Overall status at discharge: patient is progressing back to baseline - Discharge Instructions Follow Up With: OXANA,PCP [Primary Care Provider] - 05/27/16 2:15 pm Marixa Natarajan GARMENT TURNER [Advanced Practice Nurse] - 05/23/16 10:45 am (hospital follow-up; drain check) - Diet and Activity Activity: increase activity as tolerated Diet: advance to your usual diet - Hospital Course Hospital course: Mr. Pennington is a 65 year old male who is recently s/p a colon resection with Dr. Watkins. He reported to the hospital with complaints of increasing abdominal pain. CT scan shows evidence of intra-abdominal abscess. He was sent to interventional radiology for drainage of the fluid and was started on IV anbitiotics. His symptoms have resolved with the above listed treatments. His WBC has returned to normal. He is tolerating a diet without nausea or vomiting. We will transition him to oral antibiotics and plan for outpatient follow-up 1 week. - Time Spent with Patient Total time spent providing and/or coordinating discharge services: Less than 30 minutes Labs on day of discharge: Labs from last 24 hours 05/17/16 04:21 WBC 8.4 RBC 3.90 L Hgb 11.0 L Hct 33.7 L MCV 86.4 MCH 28.2 MCHC 32.6 RDW 12.9 Plt Count 274 MPV 9.5 Immature Gran % 0.2 Seg Neutrophils % 71.2 Lymphocytes % 16.0 Monocytes % 8.3 Eosinophils % 3.9 Basophils % 0.4 Neutrophils # 6.0 Lymphocytes # 1.4 Monocytes # 0.7 Eosinophils # 0.3 Basophils # 0.0 - Attending Attestation I examined this patient and my medical decision-making was reviewed with the HUMANITIES PROFESSOR/PA/Advanced Practice Nurse/Resident Physician. I agree with the documented findings, disposition and treatment plan as described except to the extent set forth below.
== END 2016-05-17 15:47 | disposition home or self-care (01) | DRG 373 ==
LOC: 3ANU 09:26 → EMEROO 09:26 → SUATTDRO 12:51 → 3ANU 13:15
PROVIDERS: ADMIT Surgery; ATTEND Surgery
PROC: IRDRAIN (2016-05-15 09:00)

== ENCOUNTER 2020-09-02 12:29 | Inpatient (IN) ==
[2020-09-02] MEDS ORDERED: MetroNIDAZOLE 500 MG/100 ML 500 MG/100 ML BAG IVPB ONE (13:01)
[2020-09-02] MEDS ORDERED: CeFAZolin Syr 2,000MG/20 ML 2,000 MG/20 ML SYRINGE IVPB ONE (13:01)
[2020-09-02] MEDS ORDERED: Ringers Solution, Lactated 1,000 ML IVC SCH (13:15)
[2020-09-02] MEDS ORDERED: *HR* Propofol 200 MG/20 ML VIAL IVP ONE (13:28)
[2020-09-02] MEDS ORDERED: *HR* FentaNYL (PF) 100 MCG/2 ML VIAL ONE (13:28)
[2020-09-02] MEDS ORDERED: *HR* Rocuronium Bromide 50 MG/5 ML VIAL ONE ×2 (13:31→17:24)
[2020-09-02] MEDS ORDERED: Lidocaine HCL 4 ML Topical Solution (Laryng-O-Jet Kit Sterile Pak) TP ONE (13:31)
[2020-09-02] MEDS ORDERED: Lidocaine -MPF 2% 2 ML VIAL ONE (13:31)
[2020-09-02] MEDS ORDERED: *HR* Succinylcholine 200 MG/10 ML VIAL IVP ONE (13:32)
[2020-09-02] MEDS ORDERED: *HR* HYDROmorphone PF 0.5 MG/0.5 ML SYRINGE IVP PRN (13:39)
[2020-09-02] MEDS ORDERED: Ondansetron 4 MG/2 ML VIAL IVP PRN (13:39)
[2020-09-02] MEDS ORDERED: Promethazine 6.25 MG in Water for inj. (sterile) 20 ML IVPB PRN (13:39)
[2020-09-02] MEDS ORDERED: *HR* HYDROcodone/Acet 7.5/325 mg TABLET PO PRN (13:39)
[2020-09-02] MEDS ORDERED: Famotidine 20 MG/2 ML VIAL IVP ONE (14:41)
[2020-09-02] MEDS ORDERED: Acetaminophen IV 1,000 MG/100 ML BAG IVPB ONE (14:41)
[2020-09-02] MEDS ORDERED: EPHEDrine 50 MG/ML VIAL ONE (16:07)
[2020-09-02] MEDS ORDERED: Ondansetron 4 MG/2 ML VIAL ONE (16:09)
[2020-09-02] MEDS ORDERED: CefOXitin 1,000 MG VIAL ONE ×2 (17:36→18:42)
[2020-09-02] MEDS ORDERED: Ketorolac 30 MG/ML VIAL ONE (18:43)
[2020-09-02] MEDS ORDERED: *HR* HYDROMORPHONE 2 MG/ML VIAL ONE (18:44)
[2020-09-02] MEDS ORDERED: Sugammadex Sodium 200 MG/2 ML VIAL IV ONE (18:52)
[2020-09-02] MEDS ORDERED: Albumin Human 5% 25.0 GM/500 ML IV.SOLN ONE (19:06)
[2020-09-02] MEDS ORDERED: *HR* HYDROmorphone 20 MG/20 ML PCA IVC PRN (20:22)
[2020-09-02] MEDS ORDERED: Naloxone 0.4 MG/ML INJ IVP PRN (20:22)
[2020-09-02] MEDS: Ringers Solution, Lactated 1,000 ML IVC SCH (21:51)
[2020-09-02] MEDS: Piperacillin/Tazobactam 3.375 GM in 0.9 % Sodium Chloride Mini Bag 100 ML IVPB SCH (21:52)
[2020-09-03 01:26] LABS: Basophils % 0.1 %; Immature Granulocytes % 0.3 % (0-4); Lymphocytes # 0.6 K/mcL (0.6-4.6); Lymphocytes % 3.8 %; Mean Corpuscular HGB Conc 31.6 g/dL (31.6-35.5); Mean Corpuscular Hemoglobin 28.3 pg (28.0-33.3); Mean Corpuscular Volume 89.6 fL (83.0-100.0); Mean Platelet Volume 9.5 fL (9.4-12.4); Monocytes % 6.9 %; Platelet Count 177 K/mcL (140-400); Red Blood Count 4.13 M/mcL (4.19-5.50); Red Cell Distribution Width 13.2 % (11.5-14.5); Segmented Neutrophils % 88.9 %
[2020-09-03 01:28] LABS: Hemoglobin 11.7 g/dL (12.9-16.9); Neutrophils # 13.3 K/mcL (1.6-8.9)
[2020-09-03 01:45] LABS: BUN/Creatinine Ratio 20 (6-26); Blood Urea Nitrogen 24 mg/dL (8-23); Calcium 8.3 mg/dL (8.6-10.3); Carbon Dioxide 25 mEq/L (23-29); Chloride 107 mEq/L (98-107); Glucose 175 mg/dL (70-105); Magnesium 1.8 mg/dL (1.6-2.6); Osmolality,Calculated 296 (280-300); Phosphorous 3.9 mg/dL (2.7-4.5); Potassium 4.1 mEq/L (3.5-5.1); Sodium 139 mEq/L (136-145); eGFR For African Americans > 60 (> 60); eGFR For Non-African Americans 60 (> 60)
[2020-09-03 02:05] LABS: Platelet Estimate Normal (Normal)
[2020-09-03] MEDS: Ringers Solution, Lactated 1,000 ML IVC SCH (05:12)
[2020-09-03] MEDS: Piperacillin/Tazobactam 3.375 GM in 0.9 % Sodium Chloride Mini Bag 100 ML IVPB SCH ×3 (05:12→20:02)
[2020-09-03] MEDS: Ipratropium/Albuterol Neb 3 ML IH SCH ×3 (11:14→20:29)
[2020-09-03] MEDS: Acetaminophen IV 1,000 MG/100 ML BAG IVPB SCH ×2 (12:19→17:31)
[2020-09-03] MEDS ORDERED: traZODone 50 MG TABLET PO PRN (12:57)
[2020-09-03] MEDS ORDERED: Baclofen 10 MG TABLET PO PRN (13:01)
[2020-09-03] MEDS: Losartan/HCTZ 50-12.5 TABLET PO SCH (14:01)
[2020-09-03] MEDS: D5% in 0.45% NACL w KCl 20 MEQ/1,000 ML MLS IVC SCH (14:23)
[2020-09-03] MEDS: Budesonide/Formoterol 160/4.5 1 PUFF INH IH SCH (20:29)
[2020-09-04] MEDS: Acetaminophen IV 1,000 MG/100 ML BAG IVPB SCH ×4 (00:05→17:47)
[2020-09-04] MEDS: Ipratropium/Albuterol Neb 3 ML IH SCH ×6 (00:26→20:30)
[2020-09-04 01:26] LABS: Basophils % 0.1 %; Hematocrit 32.2 % (37.5-50.1); Hemoglobin 10.2 g/dL (12.9-16.9); Immature Granulocytes % 0.8 % (0-4); Lymphocytes # 1.6 K/mcL (0.6-4.6); Lymphocytes % 9.1 %; Mean Corpuscular HGB Conc 31.7 g/dL (31.6-35.5); Mean Corpuscular Hemoglobin 28.5 pg (28.0-33.3); Mean Corpuscular Volume 89.9 fL (83.0-100.0); Mean Platelet Volume 9.9 fL (9.4-12.4); Monocytes # 0.9 K/mcL (0.0-1.3); Monocytes % 5.3 %; Neutrophils # 14.5 K/mcL (1.6-8.9); Platelet Count 147 K/mcL (140-400); Red Blood Count 3.58 M/mcL (4.19-5.50); Red Cell Distribution Width 13.3 % (11.5-14.5); Segmented Neutrophils % 84.7 %; White Blood Count 17.1 K/mcL (4.3-11.1)
[2020-09-04 01:44] LABS: BUN/Creatinine Ratio 24 (6-26); Blood Urea Nitrogen 24 mg/dL (8-23); Carbon Dioxide 21 mEq/L (23-29); Chloride 104 mEq/L (98-107); Glucose 138 mg/dL (70-105); Magnesium 1.7 mg/dL (1.6-2.6); Osmolality,Calculated 288 (280-300); Phosphorous 2.5 mg/dL (2.7-4.5); Potassium 3.4 mEq/L (3.5-5.1); Sodium 136 mEq/L (136-145); eGFR For African Americans > 60 (> 60); eGFR For Non-African Americans > 60 (> 60)
[2020-09-04] MEDS: Piperacillin/Tazobactam 3.375 GM in 0.9 % Sodium Chloride Mini Bag 100 ML IVPB SCH ×3 (03:47→20:31)
[2020-09-04] MEDS: D5% in 0.45% NACL w KCl 20 MEQ/1,000 ML MLS IVC SCH ×4 (05:31→23:45)
[2020-09-04] MEDS: Budesonide/Formoterol 160/4.5 1 PUFF INH IH SCH ×2 (07:23→20:30)
[2020-09-04] MEDS: atenoloL 25 MG TABLET PO SCH (07:52)
[2020-09-04] MEDS: Losartan/HCTZ 50-12.5 TABLET PO SCH (07:52)
[2020-09-04] MEDS: *HR* Enoxaparin 40 MG/0.4 ML SYRINGE SQ SCH (07:52)
[2020-09-04] MEDS ORDERED: Potassium Chloride 40 MEQ, Lidocaine 1% 2 ML in 0.9 % Sodium Chloride 500 ML IVPB ONE (08:59)
[2020-09-04] MEDS ORDERED: Potassium Phosphate 44 MEQ in 0.9 % Sodium Chloride 250 ML IVPB ONE (09:00)
[2020-09-04] MEDS: Nicotine 14 MG PATCH.TD24 TD SCH (10:13)
[2020-09-04] MEDS: traZODone 50 MG TABLET PO SCH (20:30)
[2020-09-05] MEDS: Acetaminophen IV 1,000 MG/100 ML BAG IVPB SCH ×5 (00:18→23:46)
[2020-09-05] MEDS: Ipratropium/Albuterol Neb 3 ML IH SCH ×7 (00:24→22:51)
[2020-09-05] MEDS: D5% in 0.45% NACL w KCl 20 MEQ/1,000 ML MLS IVC SCH (01:42)
[2020-09-05] MEDS: Piperacillin/Tazobactam 3.375 GM in 0.9 % Sodium Chloride Mini Bag 100 ML IVPB SCH ×3 (05:12→21:07)
[2020-09-05] MEDS: *HR* Enoxaparin 40 MG/0.4 ML SYRINGE SQ SCH (05:13)
[2020-09-05 06:50] LABS: Basophils % 0.1 %; Eosinophils # 0.1 K/mcL (0.0-0.6); Eosinophils % 0.4 %; Hematocrit 31.2 % (37.5-50.1); Hemoglobin 9.8 g/dL (12.9-16.9); Lymphocytes # 1.1 K/mcL (0.6-4.6); Lymphocytes % 8.2 %; Mean Corpuscular HGB Conc 31.4 g/dL (31.6-35.5); Mean Corpuscular Hemoglobin 28.5 pg (28.0-33.3); Mean Corpuscular Volume 90.7 fL (83.0-100.0); Mean Platelet Volume 10.4 fL (9.4-12.4); Monocytes # 0.9 K/mcL (0.0-1.3); Monocytes % 6.4 %; Neutrophils # 11.6 K/mcL (1.6-8.9); Platelet Count 151 K/mcL (140-400); Red Blood Count 3.44 M/mcL (4.19-5.50); Red Cell Distribution Width 13.6 % (11.5-14.5); Segmented Neutrophils % 83.9 %; White Blood Count 13.8 K/mcL (4.3-11.1)
[2020-09-05 06:59] LABS: BUN/Creatinine Ratio 16 (6-26); Blood Urea Nitrogen 15 mg/dL (8-23); Calcium 8.3 mg/dL (8.6-10.3); Carbon Dioxide 24 mEq/L (23-29); Chloride 104 mEq/L (98-107); Glucose 113 mg/dL (70-105); Magnesium 1.9 mg/dL (1.6-2.6); Osmolality,Calculated 280 (280-300); Phosphorous 1.5 mg/dL (2.7-4.5); Potassium 3.5 mEq/L (3.5-5.1); Sodium 134 mEq/L (136-145); eGFR For African Americans > 60 (> 60); eGFR For Non-African Americans > 60 (> 60)
[2020-09-05] MEDS: Budesonide/Formoterol 160/4.5 1 PUFF INH IH SCH ×2 (07:50→20:05)
[2020-09-05] MEDS: Losartan/HCTZ 50-12.5 TABLET PO SCH (08:59)
[2020-09-05] MEDS: atenoloL 25 MG TABLET PO SCH (08:59)
[2020-09-05] MEDS: Nicotine 14 MG PATCH.TD24 TD SCH (08:59)
[2020-09-05] MEDS ORDERED: Sodium Phosphate 30 MMOL in 0.9 % Sodium Chloride 100 ML IVPB ONE (15:04)
[2020-09-05] MEDS ORDERED: D5% in 0.45% NACL w KCl 20 MEQ/1,000 ML MLS IVC SCH (15:06)
[2020-09-05] MEDS: traZODone 50 MG TABLET PO SCH (21:07)
[2020-09-06] MEDS: Ipratropium/Albuterol Neb 3 ML IH SCH ×6 (04:07→23:12)
[2020-09-06] MEDS: Piperacillin/Tazobactam 3.375 GM in 0.9 % Sodium Chloride Mini Bag 100 ML IVPB SCH ×3 (04:56→20:22)
[2020-09-06] MEDS: Acetaminophen IV 1,000 MG/100 ML BAG IVPB SCH ×4 (04:57→23:58)
[2020-09-06] MEDS: Budesonide/Formoterol 160/4.5 1 PUFF INH IH SCH ×2 (08:09→20:25)
[2020-09-06] MEDS ORDERED: D5% in 0.45% NACL w KCl 20 MEQ/1,000 ML MLS IVC SCH (08:45)
[2020-09-06] MEDS: *HR* Enoxaparin 40 MG/0.4 ML SYRINGE SQ SCH (09:02)
[2020-09-06] MEDS: Nicotine 14 MG PATCH.TD24 TD SCH (09:03)
[2020-09-06] MEDS: atenoloL 25 MG TABLET PO SCH (09:03)
[2020-09-06] MEDS: Losartan/HCTZ 50-12.5 TABLET PO SCH (09:03)
[2020-09-06] MEDS: traZODone 50 MG TABLET PO SCH (20:22)
[2020-09-07] MEDS: Ipratropium/Albuterol Neb 3 ML IH SCH ×3 (04:14→11:51)
[2020-09-07] MEDS: Piperacillin/Tazobactam 3.375 GM in 0.9 % Sodium Chloride Mini Bag 100 ML IVPB SCH (05:30)
[2020-09-07] MEDS: *HR* Enoxaparin 40 MG/0.4 ML SYRINGE SQ SCH (05:31)
[2020-09-07] MEDS: Acetaminophen IV 1,000 MG/100 ML BAG IVPB SCH (05:31)
[2020-09-07 06:48] VITALS: BP 128/76
[2020-09-07] MEDS: Budesonide/Formoterol 160/4.5 1 PUFF INH IH SCH (07:39)
[2020-09-07] MEDS ORDERED: polyethylene glycoL 3350 17 GM POWD.PACK PO SCH (09:00)
[2020-09-07] MEDS: atenoloL 25 MG TABLET PO SCH (09:30)
[2020-09-07] MEDS: Nicotine 14 MG PATCH.TD24 TD SCH (09:30)
[2020-09-07] MEDS: Losartan/HCTZ 50-12.5 TABLET PO SCH (09:30)
== END 2020-09-07 15:01 | disposition home or self-care (01) | DRG 330 ==
LOC: SAMDAY 12:29 → 3NENU 20:21
PROVIDERS: ADMIT Surgery; ATTEND Surgery

== ENCOUNTER 2020-09-14 10:15 | Inpatient (IN) ==
[2020-09-14] MEDS ORDERED: Ipratropium/Albuterol Neb 3 ML IH ONE (10:32)
[2020-09-14 11:00] LABS: Basophils # 0.1 K/mcL (0.0-0.2); Basophils % 0.3 %; Eosinophils # 0.2 K/mcL (0.0-0.6); Eosinophils % 0.9 %; Hematocrit 33.2 % (37.5-50.1); Hemoglobin 10.7 g/dL (12.9-16.9); Immature Granulocytes % 0.8 % (0-4); Lymphocytes # 1.5 K/mcL (0.6-4.6); Lymphocytes % 7.1 %; Mean Corpuscular HGB Conc 32.2 g/dL (31.6-35.5); Mean Corpuscular Hemoglobin 27.8 pg (28.0-33.3); Mean Corpuscular Volume 86.2 fL (83.0-100.0); Monocytes # 1.2 K/mcL (0.0-1.3); Monocytes % 5.7 %; Neutrophils # 18.4 K/mcL (1.6-8.9); Platelet Count 525 K/mcL (140-400); Red Blood Count 3.85 M/mcL (4.19-5.50); Red Cell Distribution Width 13.2 % (11.5-14.5); Segmented Neutrophils % 85.2 %; White Blood Count 21.6 K/mcL (4.3-11.1)
[2020-09-14 11:19] LABS: BUN/Creatinine Ratio 17 (6-26); Blood Urea Nitrogen 15 mg/dL (8-23); Calcium 8.9 mg/dL (8.6-10.3); Carbon Dioxide 22 mEq/L (23-29); Chloride 101 mEq/L (98-107); Glucose 157 mg/dL (70-105); Osmolality,Calculated 280 (280-300); Sodium 133 mEq/L (136-145); eGFR For African Americans > 60 (> 60); eGFR For Non-African Americans > 60 (> 60)
[2020-09-14 11:20] LABS: Troponin I < 0.03 ng/mL (< 0.04)
[2020-09-14] MEDS ORDERED: Piperacillin/Tazobactam 3.375 GM in 0.9 % Sodium Chloride Mini Bag 100 ML IVPB ONE (11:29)
[2020-09-14] MEDS ORDERED: Isovue-370 500 ML BOTTLE IVP ONE (12:17)
[2020-09-14 16:39] LABS: ABG Base Excess 0 mEq/L (-2 to 3); ABG HCO3 23 mEq/L (21-27); ABG Oxygen Saturation 93 % (95-98); ABG PCO2 33 mmHg (35-45); ABG PH 7.45 pH Units (7.32-7.45); ABG PO2 63 mmHg (85-104); ABG TCO2 24 mEq/L (20-26)
[2020-09-14] MEDS ORDERED: Acetaminophen 325 MG TABLET PO PRN (17:07)
[2020-09-14] MEDS ORDERED: Ondansetron 4 MG/2 ML VIAL IVP PRN (17:07)
[2020-09-14] MEDS ORDERED: Naloxone 0.4 MG/ML INJ IVP PRN (17:07)
[2020-09-14] MEDS ORDERED: Ipratropium Neb 0.5 MG NEBULIZER IH PRN (17:14)
[2020-09-14] MEDS ORDERED: Perflutren Lipid Microsphere 1.3 ML in 0.9 % Sodium Chloride 8.7 ML IVP PRN (17:16)
[2020-09-14] MEDS: Vancomycin 1,500 MG/265 ML IV.SOLN IVPB SCH (18:17)
[2020-09-14] MEDS ORDERED: Furosemide 40 MG/4 ML VIAL IVP ONE (18:25)
[2020-09-14 18:36] LABS: Adenovirus Not Detected (Not Detect); Bordetella Pertussis Not Detected (Not Detect); Chlamydophila pneumoniae Not Detected (Not Detect); Coronavirus 229E Not Detected (Not Detect); Coronavirus HKU1 Not Detected (Not Detect); Coronavirus NL63 Not Detected (Not Detect); Coronavirus OC43 Not Detected (Not Detect); Human Metapneumovirus Not Detected (Not Detect); Human Rhinovirus/Enterovirus Not Detected (Not Detect); Influenza A Subtype 2009 H1 Not Detected (Not Detect); Influenza B Not Detected (Not Detect); Mycoplasma pneumoniae Not Detected (Not Detect); Parainfluenza Virus 1 Not Detected (Not Detect); Parainfluenza Virus 2 Not Detected (Not Detect); Parainfluenza Virus 3 Not Detected (Not Detect); Parainfluenza Virus 4 Not Detected (Not Detect); Respiratory Syncytial Virus Not Detected (Not Detect); SARS-CoV-2 Not Detected (Not Detect)
[2020-09-14 19:02] LABS: Bilirubin,Urine Negative (Negative); Blood,Urine Negative (Negative); Clarity,Urine Clear (Clear); Color,Urine Yellow (Yellow); Glucose,Urine (UA) Normal (Normal); Ketones,Urine Negative (Negative); Leukocyte Esterase,Urine Negative (Negative); Nitrite,Urine Negative (Negative); PH,Urine 6.5 pH Units (5.0-8.0); Protein,Urine Trace mg/dL (Neg-Trace); Specific Gravity,Urine > 1.030 (1.010-1.025); Urobilinogen,Urine Normal (Normal)
[2020-09-14] MEDS: Ipratropium/Albuterol Neb 3 ML IH SCH (20:09)
[2020-09-14] MEDS: Melatonin 3 MG TABLET PO PRN (20:55)
[2020-09-14] MEDS: Piperacillin/Tazobactam 3.375 GM in 0.9 % Sodium Chloride Mini Bag 100 ML IVPB SCH (21:06)
[2020-09-15] MEDS: Piperacillin/Tazobactam 3.375 GM in 0.9 % Sodium Chloride Mini Bag 100 ML IVPB SCH ×4 (00:14→22:09)
[2020-09-15] MEDS: MethylPREDNISolone 40 MG/ML VIAL IVP SCH ×3 (00:24→16:01)
[2020-09-15] MEDS: Ipratropium/Albuterol Neb 3 ML IH SCH ×7 (00:43→23:19)
[2020-09-15] MEDS: Vancomycin 1,500 MG/265 ML IV.SOLN IVPB SCH ×2 (04:59→16:01)
[2020-09-15 06:02] LABS: Basophils % 0.2 %; Eosinophils % 0.1 %; Hematocrit 31.1 % (37.5-50.1); Hemoglobin 10.3 g/dL (12.9-16.9); Immature Granulocytes % 0.5 % (0-4); Lymphocytes # 0.6 K/mcL (0.6-4.6); Mean Corpuscular HGB Conc 33.1 g/dL (31.6-35.5); Mean Corpuscular Hemoglobin 28.7 pg (28.0-33.3); Mean Corpuscular Volume 86.6 fL (83.0-100.0); Mean Platelet Volume 9.1 fL (9.4-12.4); Monocytes # 0.4 K/mcL (0.0-1.3); Monocytes % 2.3 %; Neutrophils # 14.6 K/mcL (1.6-8.9); Platelet Count 489 K/mcL (140-400); Red Blood Count 3.59 M/mcL (4.19-5.50); Red Cell Distribution Width 13.1 % (11.5-14.5); Segmented Neutrophils % 92.9 %; White Blood Count 15.7 K/mcL (4.3-11.1)
[2020-09-15 06:33] LABS: Alanine Aminotransferase 52 Units/L (7-52); Albumin 3.2 g/dL (3.5-5.7); Albumin/Globulin Ratio 0.9 (1.1-2.2); Alkaline Phosphatase 83 Units/L (34-104); Aspartate Amino Transferase 34 Units/L (13-39); BUN/Creatinine Ratio 18 (6-26); Bilirubin,Total 0.6 mg/dL (0.3-1.0); Blood Urea Nitrogen 17 mg/dL (8-23); Carbon Dioxide 23 mEq/L (23-29); Chloride 100 mEq/L (98-107); Chol/HDL Ratio 5.3 (0-4.9); Cholesterol 112 mg/dL (< 200); Globulin 3.4 g/dL (2.4-3.5); Glucose 158 mg/dL (70-105); HDL Cholesterol 21 mg/dL (40-59); LDL Cholesterol,Calculated 67 mg/dL (< 100); Magnesium 2.1 mg/dL (1.6-2.6); Osmolality,Calculated 281 (280-300); Phosphorous 3.5 mg/dL (2.7-4.5); Potassium 4.2 mEq/L (3.5-5.1); Sodium 133 mEq/L (136-145); Total Protein 6.6 g/dL (6.4-8.9); Triglycerides 120 mg/dL (< 150); eGFR For African Americans > 60 (> 60); eGFR For Non-African Americans > 60 (> 60)
[2020-09-15] MEDS ORDERED: *HR* OxyCODONE Immed Rel 5 MG TABLET PO PRN (12:15)
[2020-09-15] MEDS ORDERED: Acetaminophen 325 MG TABLET PO PRN (12:17)
[2020-09-15] MEDS ORDERED: NON-FORMULARY MEDICATION 1 EACH EACH (Ipratropium/Albuterol Sulfate 120 PUFF Inhaler) IH SCH (13:00)
[2020-09-15] MEDS: Budesonide/Formoterol 160/4.5 1 PUFF INH IH SCH ×2 (14:03→20:20)
[2020-09-15] MEDS: Baclofen 10 MG TABLET PO SCH ×2 (16:00→22:19)
[2020-09-15] MEDS: Artificial Tears SOLN 15 ML BOTTLE BOTH EYES SCH ×2 (16:01→22:19)
[2020-09-15] MEDS: *HR* Heparin 5,000 UNIT/ML VIAL SQ SCH (16:56)
[2020-09-15] MEDS ORDERED: MethylPREDNISolone 40 MG/ML VIAL IVP SCH (17:14)
[2020-09-15] MEDS: traZODone 50 MG TABLET PO SCH (22:19)
[2020-09-15] MEDS: Cholecalciferol (D-3) 1,000 UNIT (25MCG) TABLET PO SCH (22:20)
[2020-09-16] MEDS ORDERED: 0.9 % Sodium Chloride 1,000 ML IVC SCH (00:01)
[2020-09-16] MEDS: MethylPREDNISolone 40 MG/ML VIAL IVP SCH ×3 (00:15→15:49)
[2020-09-16] MEDS: Ipratropium/Albuterol Neb 3 ML IH SCH ×5 (04:10→20:09)
[2020-09-16] MEDS: Vancomycin 1,500 MG/265 ML IV.SOLN IVPB SCH ×2 (04:57→15:49)
[2020-09-16] MEDS: Piperacillin/Tazobactam 3.375 GM in 0.9 % Sodium Chloride Mini Bag 100 ML IVPB SCH ×3 (04:57→20:55)
[2020-09-16] MEDS: *HR* Heparin 5,000 UNIT/ML VIAL SQ SCH ×2 (04:58→15:49)
[2020-09-16 05:16] LABS: Basophils % 0.1 %; Hematocrit 30.9 % (37.5-50.1); Hemoglobin 9.6 g/dL (12.9-16.9); Immature Granulocytes % 0.6 % (0-4); Lymphocytes # 0.9 K/mcL (0.6-4.6); Lymphocytes % 5.1 %; Mean Corpuscular HGB Conc 31.1 g/dL (31.6-35.5); Monocytes # 0.6 K/mcL (0.0-1.3); Monocytes % 3.3 %; Neutrophils # 15.9 K/mcL (1.6-8.9); Platelet Count 589 K/mcL (140-400); Red Blood Count 3.55 M/mcL (4.19-5.50); Red Cell Distribution Width 13.1 % (11.5-14.5); Segmented Neutrophils % 90.9 %; White Blood Count 17.5 K/mcL (4.3-11.1)
[2020-09-16 05:32] LABS: Alanine Aminotransferase 53 Units/L (7-52); Albumin 3.2 g/dL (3.5-5.7); Alkaline Phosphatase 75 Units/L (34-104); Aspartate Amino Transferase 33 Units/L (13-39); BUN/Creatinine Ratio 22 (6-26); Bilirubin,Total 0.4 mg/dL (0.3-1.0); Blood Urea Nitrogen 23 mg/dL (8-23); Calcium 8.9 mg/dL (8.6-10.3); Carbon Dioxide 24 mEq/L (23-29); Chloride 104 mEq/L (98-107); Globulin 3.3 g/dL (2.4-3.5); Glucose 149 mg/dL (70-105); Osmolality,Calculated 288 (280-300); Potassium 4.1 mEq/L (3.5-5.1); Sodium 136 mEq/L (136-145); Total Protein 6.5 g/dL (6.4-8.9); eGFR For African Americans > 60 (> 60); eGFR For Non-African Americans > 60 (> 60)
[2020-09-16] MEDS: Budesonide/Formoterol 160/4.5 1 PUFF INH IH SCH ×2 (07:50→20:11)
[2020-09-16] MEDS: Artificial Tears SOLN 15 ML BOTTLE BOTH EYES SCH ×3 (09:27→20:54)
[2020-09-16] MEDS: Baclofen 10 MG TABLET PO SCH ×2 (09:27→20:53)
[2020-09-16] MEDS ORDERED: *HR* Midazolam HCl 2 MG/2 ML VIAL IVP ONE (10:47)
[2020-09-16] MEDS ORDERED: *HR* FentaNYL (PF) 100 MCG/2 ML VIAL IVP ONE (10:47)
[2020-09-16] MEDS ORDERED: 0.9 % Sodium Chloride 500 ML ONE (10:55)
[2020-09-16] MEDS ORDERED: *HR* Midazolam HCl 2 MG/2 ML VIAL ONE (11:01)
[2020-09-16] MEDS ORDERED: *HR* FentaNYL (PF) 100 MCG/2 ML VIAL ONE (11:01)
[2020-09-16] MEDS: Cholecalciferol (D-3) 1,000 UNIT (25MCG) TABLET PO SCH (20:53)
[2020-09-16] MEDS: traZODone 50 MG TABLET PO SCH (20:54)
[2020-09-17] MEDS: MethylPREDNISolone 40 MG/ML VIAL IVP SCH ×3 (00:02→16:39)
[2020-09-17] MEDS: Ipratropium/Albuterol Neb 3 ML IH SCH ×7 (00:43→23:24)
[2020-09-17 03:00] LABS: Basophils % 0.1 %; Hematocrit 29.4 % (37.5-50.1); Hemoglobin 9.5 g/dL (12.9-16.9); Immature Granulocytes % 0.9 % (0-4); Lymphocytes # 0.9 K/mcL (0.6-4.6); Lymphocytes % 6.1 %; Mean Corpuscular HGB Conc 32.3 g/dL (31.6-35.5); Mean Corpuscular Hemoglobin 28.3 pg (28.0-33.3); Mean Corpuscular Volume 87.5 fL (83.0-100.0); Monocytes # 0.9 K/mcL (0.0-1.3); Monocytes % 6.1 %; Neutrophils # 13.1 K/mcL (1.6-8.9); Platelet Count 576 K/mcL (140-400); Red Blood Count 3.36 M/mcL (4.19-5.50); Red Cell Distribution Width 13.4 % (11.5-14.5); Segmented Neutrophils % 86.8 %; White Blood Count 15.2 K/mcL (4.3-11.1)
[2020-09-17 03:19] LABS: Alanine Aminotransferase 73 Units/L (7-52); Albumin 3.2 g/dL (3.5-5.7); Albumin/Globulin Ratio 1.1 (1.1-2.2); Alkaline Phosphatase 69 Units/L (34-104); Aspartate Amino Transferase 46 Units/L (13-39); BUN/Creatinine Ratio 26 (6-26); Bilirubin,Total 0.4 mg/dL (0.3-1.0); Blood Urea Nitrogen 33 mg/dL (8-23); Calcium 8.8 mg/dL (8.6-10.3); Carbon Dioxide 21 mEq/L (23-29); Chloride 109 mEq/L (98-107); Glucose 133 mg/dL (70-105); Osmolality,Calculated 295 (280-300); Sodium 138 mEq/L (136-145); Total Protein 6.2 g/dL (6.4-8.9); eGFR For African Americans > 60 (> 60); eGFR For Non-African Americans 56 (> 60)
[2020-09-17] MEDS: Vancomycin 1,500 MG/265 ML IV.SOLN IVPB SCH (05:02)
[2020-09-17] MEDS: Piperacillin/Tazobactam 3.375 GM in 0.9 % Sodium Chloride Mini Bag 100 ML IVPB SCH ×3 (05:03→20:23)
[2020-09-17] MEDS: *HR* Heparin 5,000 UNIT/ML VIAL SQ SCH ×2 (05:04→16:40)
[2020-09-17] MEDS: Budesonide/Formoterol 160/4.5 1 PUFF INH IH SCH ×2 (07:29→20:07)
[2020-09-17] MEDS: Artificial Tears SOLN 15 ML BOTTLE BOTH EYES SCH ×3 (09:11→20:23)
[2020-09-17 15:42] LABS: BUN/Creatinine Ratio 26 (6-26); Blood Urea Nitrogen 35 mg/dL (8-23); Carbon Dioxide 19 mEq/L (23-29); Chloride 109 mEq/L (98-107); Glucose 142 mg/dL (70-105); Magnesium 2.4 mg/dL (1.6-2.6); Osmolality,Calculated 296 (280-300); Potassium 3.9 mEq/L (3.5-5.1); Sodium 138 mEq/L (136-145); eGFR For African Americans > 60 (> 60); eGFR For Non-African Americans 52 (> 60)
[2020-09-17] MEDS ORDERED: Vancomycin 1,500 MG/265 ML IV.SOLN IVPB SCH (17:00)
[2020-09-17] MEDS: traZODone 50 MG TABLET PO SCH (20:23)
[2020-09-17] MEDS: Baclofen 10 MG TABLET PO SCH (20:23)
[2020-09-17] MEDS: Cholecalciferol (D-3) 1,000 UNIT (25MCG) TABLET PO SCH (20:23)
[2020-09-18] MEDS: Ipratropium/Albuterol Neb 3 ML IH SCH ×6 (03:58→23:17)
[2020-09-18] MEDS: *HR* Heparin 5,000 UNIT/ML VIAL SQ SCH ×2 (04:28→16:48)
[2020-09-18] MEDS: Piperacillin/Tazobactam 3.375 GM in 0.9 % Sodium Chloride Mini Bag 100 ML IVPB SCH ×3 (04:28→19:28)
[2020-09-18 07:15] LABS: Basophils % 0.1 %; Eosinophils % 0.1 %; Hematocrit 30.1 % (37.5-50.1); Hemoglobin 9.5 g/dL (12.9-16.9); Immature Granulocytes % 0.7 % (0-4); Lymphocytes # 2.4 K/mcL (0.6-4.6); Lymphocytes % 17.8 %; Mean Corpuscular HGB Conc 31.6 g/dL (31.6-35.5); Mean Corpuscular Hemoglobin 27.7 pg (28.0-33.3); Mean Corpuscular Volume 87.8 fL (83.0-100.0); Mean Platelet Volume 9.1 fL (9.4-12.4); Monocytes # 1.3 K/mcL (0.0-1.3); Monocytes % 9.4 %; Neutrophils # 9.9 K/mcL (1.6-8.9); Platelet Count 590 K/mcL (140-400); Red Blood Count 3.43 M/mcL (4.19-5.50); Red Cell Distribution Width 13.6 % (11.5-14.5); Segmented Neutrophils % 71.9 %; White Blood Count 13.7 K/mcL (4.3-11.1)
[2020-09-18] MEDS: Budesonide/Formoterol 160/4.5 1 PUFF INH IH SCH (07:29)
[2020-09-18] MEDS: predniSONE 20 MG TABLET PO SCH (08:28)
[2020-09-18] MEDS: Artificial Tears SOLN 15 ML BOTTLE BOTH EYES SCH ×3 (08:29→21:29)
[2020-09-18 09:22] LABS: Alanine Aminotransferase 91 Units/L (7-52); Albumin 3.2 g/dL (3.5-5.7); Albumin/Globulin Ratio 1.1 (1.1-2.2); Alkaline Phosphatase 67 Units/L (34-104); Aspartate Amino Transferase 44 Units/L (13-39); BUN/Creatinine Ratio 24 (6-26); Bilirubin,Direct 0.1 mg/dL (0.0-0.2); Bilirubin,Indirect 0.3 mg/dL (0.0-1.0); Bilirubin,Total 0.4 mg/dL (0.3-1.0); Blood Urea Nitrogen 33 mg/dL (8-23); Calcium 8.9 mg/dL (8.6-10.3); Carbon Dioxide 21 mEq/L (23-29); Chloride 110 mEq/L (98-107); Glucose 92 mg/dL (70-105); Magnesium 2.4 mg/dL (1.6-2.6); Osmolality,Calculated 297 (280-300); Potassium 3.7 mEq/L (3.5-5.1); Sodium 140 mEq/L (136-145); Total Protein 6.2 g/dL (6.4-8.9); eGFR For African Americans > 60 (> 60); eGFR For Non-African Americans 52 (> 60)
[2020-09-18 09:38] LABS: Ferritin 170 ng/mL (20-250)
[2020-09-18 09:41] LABS: Folate 8.6 ng/mL (3.0-16.0)
[2020-09-18] MEDS ORDERED: Azithromycin 250 MG TABLET PO SCH (18:00)
[2020-09-18] MEDS: Azithromycin 500 MG in 0.9 % Sodium Chloride 250 ML IVPB SCH (18:10)
[2020-09-18] MEDS: Cholecalciferol (D-3) 1,000 UNIT (25MCG) TABLET PO SCH (19:28)
[2020-09-18] MEDS: Baclofen 10 MG TABLET PO SCH (19:28)
[2020-09-18] MEDS: traZODone 50 MG TABLET PO SCH (19:28)
[2020-09-18] MEDS ORDERED: Budesonide Neb 0.5 MG/2 ML IH ONE (19:57)
[2020-09-18] MEDS: Budesonide Neb 0.5 MG/2 ML IH SCH (19:58)
[2020-09-19] MEDS: Ipratropium/Albuterol Neb 3 ML IH SCH ×6 (03:31→23:41)
[2020-09-19] MEDS: Piperacillin/Tazobactam 3.375 GM in 0.9 % Sodium Chloride Mini Bag 100 ML IVPB SCH ×3 (04:13→21:32)
[2020-09-19] MEDS: *HR* Heparin 5,000 UNIT/ML VIAL SQ SCH ×2 (04:14→16:29)
[2020-09-19 05:30] LABS: Basophils % 0.2 %; Eosinophils # 0.1 K/mcL (0.0-0.6); Eosinophils % 1.1 %; Hematocrit 30.2 % (37.5-50.1); Hemoglobin 9.6 g/dL (12.9-16.9); Immature Granulocytes % 0.7 % (0-4); Lymphocytes # 2.4 K/mcL (0.6-4.6); Lymphocytes % 20.5 %; Mean Corpuscular HGB Conc 31.8 g/dL (31.6-35.5); Mean Corpuscular Hemoglobin 27.7 pg (28.0-33.3); Mean Platelet Volume 8.8 fL (9.4-12.4); Monocytes # 1.1 K/mcL (0.0-1.3); Platelet Count 493 K/mcL (140-400); Red Blood Count 3.47 M/mcL (4.19-5.50); Red Cell Distribution Width 13.6 % (11.5-14.5); Segmented Neutrophils % 68.5 %; White Blood Count 11.7 K/mcL (4.3-11.1)
[2020-09-19 05:52] LABS: BUN/Creatinine Ratio 23 (6-26); Blood Urea Nitrogen 31 mg/dL (8-23); Calcium 8.6 mg/dL (8.6-10.3); Carbon Dioxide 22 mEq/L (23-29); Chloride 111 mEq/L (98-107); Glucose 110 mg/dL (70-105); Magnesium 2.2 mg/dL (1.6-2.6); Osmolality,Calculated 301 (280-300); Potassium 3.4 mEq/L (3.5-5.1); Sodium 142 mEq/L (136-145); eGFR For African Americans > 60 (> 60); eGFR For Non-African Americans 51 (> 60)
[2020-09-19] MEDS: Budesonide Neb 0.5 MG/2 ML IH SCH ×2 (07:34→19:49)
[2020-09-19] MEDS: predniSONE 20 MG TABLET PO SCH (07:57)
[2020-09-19] MEDS: Cyanocobalamin (B-12) 1,000 MCG TABLET PO SCH (07:57)
[2020-09-19] MEDS: Artificial Tears SOLN 15 ML BOTTLE BOTH EYES SCH ×3 (07:57→21:34)
[2020-09-19] MEDS ORDERED: Potassium Chloride Elixir 20 MEQ/15 ML UDC PO ONE (08:33)
[2020-09-19] MEDS ORDERED: Cyanocobalamin (B-12) 1,000 MCG/ML VIAL SQ ONE (17:27)
[2020-09-19] MEDS: Azithromycin 500 MG in 0.9 % Sodium Chloride 250 ML IVPB SCH (18:25)
[2020-09-19] MEDS: Cholecalciferol (D-3) 1,000 UNIT (25MCG) TABLET PO SCH (21:33)
[2020-09-19] MEDS: Baclofen 10 MG TABLET PO SCH (21:34)
[2020-09-19] MEDS: traZODone 50 MG TABLET PO SCH (21:34)
[2020-09-19] MEDS: Melatonin 3 MG TABLET PO PRN (21:49)
[2020-09-20] MEDS: Ipratropium/Albuterol Neb 3 ML IH SCH ×5 (03:29→20:01)
[2020-09-20 03:32] LABS: Basophils % 0.2 %; Eosinophils # 0.2 K/mcL (0.0-0.6); Eosinophils % 1.2 %; Hematocrit 29.5 % (37.5-50.1); Hemoglobin 9.2 g/dL (12.9-16.9); Lymphocytes # 2.7 K/mcL (0.6-4.6); Mean Corpuscular HGB Conc 31.2 g/dL (31.6-35.5); Mean Corpuscular Hemoglobin 27.4 pg (28.0-33.3); Mean Corpuscular Volume 87.8 fL (83.0-100.0); Monocytes % 8.3 %; Neutrophils # 8.2 K/mcL (1.6-8.9); Platelet Count 481 K/mcL (140-400); Red Blood Count 3.36 M/mcL (4.19-5.50); Red Cell Distribution Width 13.5 % (11.5-14.5); Segmented Neutrophils % 67.3 %; White Blood Count 12.1 K/mcL (4.3-11.1)
[2020-09-20] MEDS: Piperacillin/Tazobactam 3.375 GM in 0.9 % Sodium Chloride Mini Bag 100 ML IVPB SCH ×3 (03:33→22:14)
[2020-09-20] MEDS: *HR* Heparin 5,000 UNIT/ML VIAL SQ SCH ×2 (03:34→17:27)
[2020-09-20 03:55] LABS: BUN/Creatinine Ratio 23 (6-26); Blood Urea Nitrogen 30 mg/dL (8-23); Calcium 8.6 mg/dL (8.6-10.3); Carbon Dioxide 22 mEq/L (23-29); Chloride 111 mEq/L (98-107); Glucose 87 mg/dL (70-105); Magnesium 2.2 mg/dL (1.6-2.6); Osmolality,Calculated 298 (280-300); Potassium 3.9 mEq/L (3.5-5.1); Sodium 141 mEq/L (136-145); eGFR For African Americans > 60 (> 60); eGFR For Non-African Americans 55 (> 60)
[2020-09-20] MEDS: Budesonide Neb 0.5 MG/2 ML IH SCH ×2 (08:03→20:01)
[2020-09-20] MEDS: predniSONE 20 MG TABLET PO SCH (08:53)
[2020-09-20] MEDS: Cyanocobalamin (B-12) 1,000 MCG TABLET PO SCH (08:53)
[2020-09-20] MEDS: Artificial Tears SOLN 15 ML BOTTLE BOTH EYES SCH ×3 (08:54→22:23)
[2020-09-20] MEDS: Azithromycin 500 MG in 0.9 % Sodium Chloride 250 ML IVPB SCH (17:30)
[2020-09-20] MEDS: Melatonin 3 MG TABLET PO PRN (22:14)
[2020-09-20] MEDS: Baclofen 10 MG TABLET PO SCH (22:14)
[2020-09-20] MEDS: traZODone 50 MG TABLET PO SCH (22:14)
[2020-09-20] MEDS: Cholecalciferol (D-3) 1,000 UNIT (25MCG) TABLET PO SCH (22:14)
[2020-09-21] MEDS: Ipratropium/Albuterol Neb 3 ML IH SCH ×5 (04:08→16:32)
[2020-09-21] MEDS: Piperacillin/Tazobactam 3.375 GM in 0.9 % Sodium Chloride Mini Bag 100 ML IVPB SCH ×2 (04:16→14:22)
[2020-09-21] MEDS: *HR* Heparin 5,000 UNIT/ML VIAL SQ SCH ×2 (04:17→17:01)
[2020-09-21 05:23] LABS: Basophils % 0.2 %; Eosinophils # 0.2 K/mcL (0.0-0.6); Eosinophils % 1.7 %; Hematocrit 31.8 % (37.5-50.1); Hemoglobin 10.4 g/dL (12.9-16.9); Immature Granulocytes % 0.9 % (0-4); Lymphocytes # 3.1 K/mcL (0.6-4.6); Lymphocytes % 22.2 %; Mean Corpuscular HGB Conc 32.7 g/dL (31.6-35.5); Mean Corpuscular Hemoglobin 28.1 pg (28.0-33.3); Mean Corpuscular Volume 85.9 fL (83.0-100.0); Mean Platelet Volume 9.3 fL (9.4-12.4); Monocytes # 0.9 K/mcL (0.0-1.3); Monocytes % 6.7 %; Neutrophils # 9.4 K/mcL (1.6-8.9); Platelet Count 480 K/mcL (140-400); Red Cell Distribution Width 13.5 % (11.5-14.5); Segmented Neutrophils % 68.3 %; White Blood Count 13.8 K/mcL (4.3-11.1)
[2020-09-21 05:45] LABS: BUN/Creatinine Ratio 22 (6-26); Blood Urea Nitrogen 28 mg/dL (8-23); Carbon Dioxide 24 mEq/L (23-29); Chloride 109 mEq/L (98-107); Glucose 94 mg/dL (70-105); Magnesium 2.1 mg/dL (1.6-2.6); Osmolality,Calculated 295 (280-300); Sodium 140 mEq/L (136-145); eGFR For African Americans > 60 (> 60); eGFR For Non-African Americans 55 (> 60)
[2020-09-21] MEDS: Budesonide Neb 0.5 MG/2 ML IH SCH (08:40)
[2020-09-21] MEDS ORDERED: predniSONE 20 MG TABLET PO SCH (09:00)
[2020-09-21] MEDS: Artificial Tears SOLN 15 ML BOTTLE BOTH EYES SCH ×2 (09:27→16:54)
[2020-09-21] MEDS: Cyanocobalamin (B-12) 1,000 MCG TABLET PO SCH (09:37)
[2020-09-21 16:44] VITALS: BP 143/82
[2020-09-21] MEDS: Azithromycin 500 MG in 0.9 % Sodium Chloride 250 ML IVPB SCH (18:08)
== END 2020-09-21 19:26 | disposition home health service (06) | DRG 853 ==
LOC: EMEROOARM 10:15 → 2ANU 10:15 → SUATTDRO 15:58 → 2ANU 17:25
PROVIDERS: ADMIT Internal Medicine; ATTEND Pharmacist
PROC: IRDRAIN (2020-09-16 12:00)

== ENCOUNTER 2022-02-11 10:24 | Observation (INO) ==
[2022-02-11] MEDS ORDERED: Iopamidol - 370 500 ML MLS IVP ONE (11:17)
[2022-02-11] MEDS ORDERED: 0.9 % Sodium Chloride 1,000 ML IVC ONE (11:17)
[2022-02-11 11:37] LABS: Hematocrit 28.2 % (37.5-50.1); Hemoglobin 10.1 g/dL (12.9-16.9); Mean Corpuscular HGB Conc 35.8 g/dL (31.6-35.5); Mean Corpuscular Hemoglobin 28.2 pg (28.0-33.3); Mean Corpuscular Volume 78.8 fL (83.0-100.0); Platelet Count 144 K/mcL (140-400); Red Blood Count 3.58 M/mcL (4.19-5.50); Red Cell Distribution Width 12.2 % (11.5-14.5); White Blood Count 12.6 K/mcL (4.3-11.1)
[2022-02-11 11:51] LABS: INR 1.1; Prothrombin Time 12.8 Seconds (9.4-12.1)
[2022-02-11 12:01] LABS: BUN/Creatinine Ratio 22 (6-26); Blood Urea Nitrogen 43 mg/dL (8-23); Calcium 8.5 mg/dL (8.6-10.3); Carbon Dioxide 19 mEq/L (23-29); Chloride 99 mEq/L (98-107); Creatine Kinase 29 Units/L (30-223); Glucose 142 mg/dL (70-105); Osmolality,Calculated 281 (280-300); Potassium 2.5 mEq/L (3.5-5.1); Sodium 129 mEq/L (136-145); Troponin I < 0.03 ng/mL (< 0.04)
[2022-02-11 12:06] LABS: Lymphocytes # 0.9 K/mcL (0.6-4.6); Monocytes # 0.5 K/mcL (0.0-1.3); Neutrophils # 11.2 K/mcL (1.6-8.9)
[2022-02-11 12:07] LABS: Platelet Estimate Slight Decrease (Normal)
[2022-02-11] MEDS ORDERED: Magnesium Sulfate 1 GM/102 ML PIGGYBACK IVPB ONE (12:42)
[2022-02-11 13:28] LABS: Bacteria,Urine Few per hpf (None-Few); Bilirubin,Urine Negative (Negative); Blood,Urine Moderate (Negative); Clarity,Urine Turbid (Clear); Color,Urine Yellow (Yellow); Glucose,Urine (UA) Normal (Normal); Hyaline Casts,Urine Many per lpf (None Seen); Ketones,Urine Negative (Negative); Leukocyte Esterase,Urine Large (Negative); Mucus,Urine Few per lpf (None-Few); Nitrite,Urine Positive (Negative); Protein,Urine 100 mg/dL (Neg-Trace); RBC,Urine 15-30 per hpf (0-3); Renal Epithelial Cells,Urine Few per hpf (None-Few); Specific Gravity,Urine 1.017 (1.010-1.025); Transitional Epi Cells,Urine Few per hpf (None-Few); Urobilinogen,Urine Normal (Normal); WBC,Urine TNTC per hpf (0-3)
[2022-02-11] MEDS ORDERED: cefTRIAXone 1,000 MG in 0.9 % Sodium Chloride Mini Bag 100 ML IVPB ONE (13:32)
[2022-02-11] MEDS ORDERED: Acetaminophen 325 MG TABLET PO PRN (15:59)
[2022-02-11] MEDS ORDERED: Naloxone 0.4 MG/ML INJ IVP PRN (15:59)
[2022-02-11] MEDS ORDERED: Ondansetron 4 MG/2 ML VIAL IVP PRN (15:59)
[2022-02-11] MEDS ORDERED: Ipratropium/Albuterol Neb 3 ML IH PRN (17:48)
[2022-02-11 17:58] LABS: Calcium 8.5 mg/dL (8.6-10.3); Potassium 2.6 mEq/L (3.5-5.1)
[2022-02-11] MEDS: 0.9 % Sodium Chloride w KCl 40 MEQ/1,000 ML MLS IVC SCH (18:53)
[2022-02-11 20:16] LABS: Calcium 8.2 mg/dL (8.6-10.3); Potassium 2.7 mEq/L (3.5-5.1)
[2022-02-11] MEDS ORDERED: Melatonin 3 MG TABLET PO PRN (22:27)
[2022-02-11] MEDS: *HR* Heparin 5,000 UNIT/ML VIAL SQ SCH (23:29)
[2022-02-11] MEDS: traZODone 50 MG TABLET GTUBE SCH (23:29)
[2022-02-12] MEDS: 0.9 % Sodium Chloride w KCl 40 MEQ/1,000 ML MLS IVC SCH (04:47)
[2022-02-12] MEDS: *HR* Heparin 5,000 UNIT/ML VIAL SQ SCH ×3 (04:49→22:54)
[2022-02-12 04:59] LABS: Hematocrit 24.8 % (37.5-50.1); Hemoglobin 8.8 g/dL (12.9-16.9); Mean Corpuscular HGB Conc 35.5 g/dL (31.6-35.5); Mean Corpuscular Hemoglobin 27.8 pg (28.0-33.3); Mean Corpuscular Volume 78.5 fL (83.0-100.0); Platelet Count 162 K/mcL (140-400); Red Blood Count 3.16 M/mcL (4.19-5.50); Red Cell Distribution Width 12.3 % (11.5-14.5); White Blood Count 12.1 K/mcL (4.3-11.1)
[2022-02-12 05:19] LABS: Calcium 7.9 mg/dL (8.6-10.3); Magnesium 2.1 mg/dL (1.6-2.6)
[2022-02-12 05:29] LABS: Lymphocytes # 1.7 K/mcL (0.6-4.6); Monocytes # 0.7 K/mcL (0.0-1.3); Neutrophils # 9.7 K/mcL (1.6-8.9)
[2022-02-12 05:30] LABS: Platelet Estimate Normal (Normal)
[2022-02-12] MEDS: cefTRIAXone 1,000 MG in 0.9 % Sodium Chloride Mini Bag 100 ML IVPB SCH (08:48)
[2022-02-12 12:09] LABS: Immature Reticulocyte % 27.5 % (11.0-38.0); Retculocyte # 0.02 M/mcL (0.05-0.10); Reticulocyte % 0.7 % (1.6-2.8)
[2022-02-12 12:16] LABS: Calcium 8.1 mg/dL (8.6-10.3); Potassium 3.3 mEq/L (3.5-5.1)
[2022-02-12 12:32] LABS: Thyroid Stimulating Hormone 1.541 mcIU/mL (0.340-5.600)
[2022-02-12] MEDS ORDERED: 0.9 % Sodium Chloride 250 ML ONE (14:51)
[2022-02-12] MEDS ORDERED: 0.9 % Sodium Chloride 250 ML IVC SCH (15:15)
[2022-02-12 16:12] LABS: Bilirubin,Urine Negative (Negative); Blood,Urine Small (Negative); Clarity,Urine Turbid (Clear); Color,Urine Yellow (Yellow); Glucose,Urine (UA) Normal (Normal); Ketones,Urine Negative (Negative); Leukocyte Esterase,Urine Large (Negative); Mucus,Urine Few per lpf (None-Few); Nitrite,Urine Negative (Negative); PH,Urine 6.5 pH Units (5.0-8.0); Protein,Urine 70 mg/dL (Neg-Trace); RBC,Urine 15-30 per hpf (0-3); Squamous Epithelial Cell,Urine Few per hpf (None-Few); Transitional Epi Cells,Urine Few per hpf (None-Few); Urobilinogen,Urine Normal (Normal); WBC,Urine TNTC per hpf (0-3)
[2022-02-12] MEDS: traZODone 50 MG TABLET GTUBE SCH (19:56)
[2022-02-12] MEDS: OLANZapine 5 MG TAB.RAPDIS PO SCH (19:56)
[2022-02-13] MEDS: *HR* Heparin 5,000 UNIT/ML VIAL SQ SCH ×4 (05:20→19:52)
[2022-02-13 07:49] LABS: Calcium 8.6 mg/dL (8.6-10.3); Potassium 3.8 mEq/L (3.5-5.1)
[2022-02-13 07:53] LABS: Hematocrit 28.2 % (37.5-50.1); Hemoglobin 9.8 g/dL (12.9-16.9); Lymphocytes # 1.4 K/mcL (0.6-4.6); Mean Corpuscular HGB Conc 34.8 g/dL (31.6-35.5); Mean Corpuscular Volume 80.6 fL (83.0-100.0); Mean Platelet Volume 9.8 fL (9.4-12.4); Platelet Count 231 K/mcL (140-400); Red Cell Distribution Width 13.1 % (11.5-14.5); White Blood Count 11.6 K/mcL (4.3-11.1)
[2022-02-13] MEDS: Cholecalciferol (D-3) 1,000 UNIT (25MCG) TABLET PO SCH (08:25)
[2022-02-13] MEDS: cefTRIAXone 1,000 MG in 0.9 % Sodium Chloride Mini Bag 100 ML IVPB SCH (08:27)
[2022-02-13 09:59] LABS: Eosinophils # 0.2 K/mcL (0.0-0.6); Monocytes # 0.7 K/mcL (0.0-1.3); Neutrophils # 9.3 K/mcL (1.6-8.9)
[2022-02-13 10:00] LABS: Large Platelets Present (Not Present); Platelet Estimate Normal (Normal); Polychromasia 1+ (Not Present); Toxic Granulation Present (Not Present)
[2022-02-13] MEDS: OLANZapine 5 MG TAB.RAPDIS PO SCH (19:50)
[2022-02-13] MEDS: traZODone 50 MG TABLET GTUBE SCH (19:50)
[2022-02-13] MEDS: Preparation H Ointment 57 GM TUBE TP SCH (21:24)
[2022-02-14 02:17] LABS: Hematocrit 25.5 % (37.5-50.1); Hemoglobin 8.7 g/dL (12.9-16.9); Mean Corpuscular HGB Conc 34.1 g/dL (31.6-35.5); Mean Corpuscular Hemoglobin 27.7 pg (28.0-33.3); Mean Corpuscular Volume 81.2 fL (83.0-100.0); Mean Platelet Volume 9.7 fL (9.4-12.4); Platelet Count 254 K/mcL (140-400); Red Blood Count 3.14 M/mcL (4.19-5.50); Red Cell Distribution Width 13.1 % (11.5-14.5); White Blood Count 12.1 K/mcL (4.3-11.1)
[2022-02-14 02:27] LABS: Calcium 8.1 mg/dL (8.6-10.3); Potassium 3.6 mEq/L (3.5-5.1)
[2022-02-14] MEDS: Preparation H Ointment 57 GM TUBE TP SCH (03:00)
[2022-02-14] MEDS: *HR* Heparin 5,000 UNIT/ML VIAL SQ SCH (06:25)
[2022-02-14 08:53] VITALS: BP 127/70; PULSE 87; TEMP 97.8; O2SAT 98
[2022-02-14] MEDS: Cholecalciferol (D-3) 1,000 UNIT (25MCG) TABLET PO SCH (10:12)
[2022-02-14] MEDS: cefTRIAXone 1,000 MG in 0.9 % Sodium Chloride Mini Bag 100 ML IVPB SCH (10:13)
[2022-02-16 00:27] LABS: Hematocrit RBC Folate 24.8 %
== END 2022-02-14 13:10 | disposition home or self-care (01) ==
LOC: EDBD → 2NENU 10:24 → EMEROOARM 10:24 → MERGE 15:39 → SUATTDRO 15:39 → 2NENU 16:58
PROVIDERS: ADMIT Pharmacist; ATTEND Pharmacist